=== PATIENT | female | born 1950 | race Caucasian/White ===

== ENCOUNTER 2024-03-09 08:05 | Outpatient (CLI) | payer MEDICARE, SELFPAY | END 2024-03-09 08:06 | disposition home or self-care (01) | LOC: WOUND 08:09 | PROVIDERS: PCP Nurse Practitioner Gerontology; Visit Provider Nurse Practitioner Family | DX: L89.154 Pressure ulcer of sacral region, stage 4 (principal); G35 Multiple sclerosis; Z99.3 Dependence on wheelchair | CPT/HCPCS: 11043; G0463 ==

== ENCOUNTER 2024-03-09 15:18 | Outpatient (CLI) | payer MEDICARE, SELFPAY ==
--- NOTE | 2024-03-09 15:30 | MR_ITS ---
Patient: TUAN CHURCH Facility:?[facility] Patient ID:?[id number] Site Patient ID:?[id number]. Site :?[id number] Study:?MRI-Pelvis (Bony) W/O OSTEO-03/09/2024 5:14:10 PM Ordering Physician:KACIE BURNS Final Report: INDICATION: Pressure injury of sacral region. TECHNIQUE: Noncontrast MRI of the pelvis with axial, sagittal and coronal T1 and STIR images acquired. 1.5 maribel MRI scanner. COMPARISON: No prior. FINDINGS: There is a sacral region decubitus ulcer to the left of the midline. Infiltration of the underlying soft tissues compatible with cellulitis. There is muscle edema involving a portion of the gluteus napoleon muscle adjacent to the ulcer compatible with myositis. No drainable soft tissue collection. There is an area of reactive bone marrow edema involving the left sacrum adjacent to the decubitus ulcer. There is no confluent effacement of the fatty marrow within the sacrum specific for osteomyelitis. No other areas of potential osteomyelitis. 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 On the right, minor hip joint effusion. On the left, no significant hip joint effusion. Patient is status post prior instrumentation of the left proximal femur. Prior fracture healed. No acute fracture. Suprapubic urinary bladder catheter in place. Bladder decompressed. No deep pelvic fluid collection. Common hamstring tendons are intact. Distal iliopsoas tendons intact. No high- grade gluteal tendon tear. IMPRESSION: 1. Sacral region decubitus ulcer to the left of the midline with associated cellulitis. 2. Muscle edema involving a portion of the gluteus nap[place]on muscle adjacent to the ulcer compatible with myositis. 3. No drainable soft tissue collection. 4. Reactive bone marrow edema involving the left sacrum adjacent to the decubitus ulcer. No confluent effacement of the fatty marrow within the sacrum specific for osteomyelitis. Dictated by Kwesi Theodore MD @ 03/10/2024 8:25:51 AM Signed by:?Kwesi Theodore MD @03/10/2024 8:26:17 AM (Electronic Signature)
== END 2024-03-09 15:19 | disposition home or self-care (01) ==
LOC: MRI 15:19
PROVIDERS: PCP Nurse Practitioner Gerontology; Visit Provider Nurse Practitioner Family
DX: L89.154 Pressure ulcer of sacral region, stage 4 (principal)
CPT/HCPCS: 11043; 72195; G0463

== ENCOUNTER 2024-03-14 10:49 | Outpatient (CLI) | payer MEDICARE, SELFPAY | END 2024-03-14 10:50 | disposition home or self-care (01) | LOC: WOUND 10:50 | PROVIDERS: PCP Nurse Practitioner Gerontology; Visit Provider Nurse Practitioner Family | DX: L89.154 Pressure ulcer of sacral region, stage 4 (principal); G35 Multiple sclerosis; R26.9 Unspecified abnormalities of gait and mobility; Z99.3 Dependence on wheelchair; B95.61 Methicillin susceptible Staphylococcus aureus infection as the cause of diseases classified elsewhere | CPT/HCPCS: 11043; 87070; 87186; 96372; J0696 ==

== ENCOUNTER 2024-03-23 08:28 | Outpatient (CLI) | payer MEDICARE, SELFPAY | END 2024-03-23 08:29 | disposition home or self-care (01) | LOC: WOUND 08:28 | PROVIDERS: PCP Nurse Practitioner Gerontology; Visit Provider Nurse Practitioner Family | DX: L89.154 Pressure ulcer of sacral region, stage 4 (principal) | CPT/HCPCS: 11043; 96372 ==

== ENCOUNTER 2024-03-27 14:03 | Outpatient (CLI) | payer MEDICARE, SELFPAY | END 2024-03-27 14:04 | disposition home or self-care (01) | LOC: WOUND 14:03 | PROVIDERS: PCP Nurse Practitioner Gerontology; Visit Provider Nurse Practitioner Family | DX: L89.154 Pressure ulcer of sacral region, stage 4 (principal); G35 Multiple sclerosis | CPT/HCPCS: 11043; 97605 ==

== ENCOUNTER 2024-04-03 13:59 | Outpatient (CLI) | payer MEDICARE, SELFPAY | END 2024-04-03 14:00 | disposition home or self-care (01) | LOC: WOUND 13:59 | PROVIDERS: PCP Nurse Practitioner Gerontology; Visit Provider Nurse Practitioner Family | DX: L89.154 Pressure ulcer of sacral region, stage 4 (principal); G35 Multiple sclerosis | CPT/HCPCS: 11043; 97605 ==

== ENCOUNTER 2024-04-10 14:01 | Outpatient (CLI) | payer MEDICARE, SELFPAY | END 2024-04-10 14:02 | disposition home or self-care (01) | LOC: WOUND 14:01 | PROVIDERS: PCP Nurse Practitioner Gerontology; Visit Provider Family Medicine | DX: L89.154 Pressure ulcer of sacral region, stage 4 (principal); G35 Multiple sclerosis | CPT/HCPCS: 11042; 97605 ==

== ENCOUNTER 2024-04-17 13:59 | Outpatient (CLI) | payer MEDICARE, SELFPAY | END 2024-04-17 14:00 | disposition home or self-care (01) | LOC: WOUND 13:59 | PROVIDERS: PCP Nurse Practitioner Gerontology; Visit Provider Nurse Practitioner Family | DX: L89.324 Pressure ulcer of left buttock, stage 4 (principal); G35 Multiple sclerosis | CPT/HCPCS: 11043; 97605 ==

== ENCOUNTER 2024-04-24 10:50 | Outpatient (CLI) | payer MEDICARE, SELFPAY | END 2024-04-24 10:51 | disposition home or self-care (01) | LOC: WOUND 10:50 | PROVIDERS: PCP Nurse Practitioner Gerontology; Visit Provider Nurse Practitioner Family | DX: L89.154 Pressure ulcer of sacral region, stage 4 (principal); G35 Multiple sclerosis; Z99.3 Dependence on wheelchair | CPT/HCPCS: 11043; 97605 ==

== ENCOUNTER 2024-05-01 14:02 | Outpatient (CLI) | payer MEDICARE, SELFPAY | END 2024-05-01 14:03 | disposition home or self-care (01) | LOC: WOUND 14:02 | PROVIDERS: PCP Nurse Practitioner Gerontology; Visit Provider Surgery | DX: L89.154 Pressure ulcer of sacral region, stage 4 (principal); G35 Multiple sclerosis; B95.61 Methicillin susceptible Staphylococcus aureus infection as the cause of diseases classified elsewhere; Z99.3 Dependence on wheelchair | CPT/HCPCS: 11042; 87070; 87186; 97605 ==

== ENCOUNTER 2024-05-08 14:03 | Outpatient (CLI) | payer MEDICARE, SELFPAY ==
[2024-05-08 14:27] LABS: Basophils Absolute Auto 0.03 K/uL (0.00-0.30); Basophils Percent Auto 0.5 % (0.0-3.0); Eosinophils Percent Auto 8.1 % (0.0-7.0); Hematocrit 37.3 % (33.0-51.0); Hemoglobin* 11.4 gm/dL (12.0-16.0); Immature Granulocytes Abs Auto 0.01 K/uL (0.00-0.30); Immature Granulocytes Pct Auto 0.2 %; Lymphocytes Absolute Auto 1.48 K/uL (0.90-2.90); Mean Corpuscular HGB Conc 31 gm/dL (32-36); Mean Corpuscular Hemoglobin 26 pg (26-34); Mean Corpuscular Volume 86 fL (80-100); Monocytes Percent Auto 8.1 % (0.0-11.0); Neutrophils Absolute Auto 3.45 K/uL (1.7-7.0); Neutrophils Percent Auto 58.1 % (42.0-72.0); Platelet Count* 344 K/uL (140-440); RDW Coefficient of Variation % 15.4 % (11.5-15.5); Red Blood Count 4.34 m/uL (4.00-5.20); White Blood Count* 5.93 K/uL (4.50-11.00)
[2024-05-08 14:45] LABS: Slide Review Reflex No
[2024-05-08 15:20] LABS: Erythrocyte SedimentationRate* 38 mm/hr (2-20)
[2024-05-08 15:50] LABS: C Reactive Protein* 0.7 mg/dL (0.5-1.0)
== END 2024-05-08 14:04 | disposition home or self-care (01) ==
LOC: WOUND 14:03
PROVIDERS: PCP Nurse Practitioner Gerontology; Visit Provider Physician Assistant Surgical
DX: L89.154 Pressure ulcer of sacral region, stage 4 (principal); G35 Multiple sclerosis; R41.0 Disorientation, unspecified; Z99.3 Dependence on wheelchair
CPT/HCPCS: 11043; 36415; 85025; 85651; 86140; 97605

== ENCOUNTER 2024-05-15 13:55 | Outpatient (CLI) | payer MEDICARE, SELFPAY | END 2024-05-15 13:56 | disposition home or self-care (01) | LOC: WOUND 13:55 | PROVIDERS: PCP Nurse Practitioner Gerontology; Visit Provider Nurse Practitioner Family | DX: L89.154 Pressure ulcer of sacral region, stage 4 (principal); G35 Multiple sclerosis | CPT/HCPCS: 11043 ==

== ENCOUNTER 2024-05-22 14:02 | Outpatient (CLI) | payer MEDICARE, SELFPAY | END 2024-05-22 14:03 | disposition home or self-care (01) | LOC: WOUND 14:03 | PROVIDERS: PCP Nurse Practitioner Gerontology; Visit Provider Family Medicine | DX: L89.154 Pressure ulcer of sacral region, stage 4 (principal); G35 Multiple sclerosis | CPT/HCPCS: 11042; 97605 ==

== ENCOUNTER 2024-05-26 13:30 | Outpatient (RCR) | payer MEDICARE, SELFPAY ==
--- NOTE | 2024-05-10 13:52 | ONC.NURNOTE ---
Called wound care to see if patient was coming in for IV antibiotics today. They stated that patient has a few other appointments and they didn't think they would be able to make it today. Patient is scheduled starting tomorrow 05/11 at 1330. Wound care is aware.
[2024-05-11 13:47] VITALS: BP 106/69; PULSE 77; RESP 16; TEMP 36.3; O2SAT 98
[2024-05-11] MEDS: cefTRIAXone 2 GM in 0.9 % SODIUM CHLORIDE Mini-bag 100 ML IVPB (14:01)
[2024-05-11] MEDS: SODIUM CHLORIDE 0.9 % (FLUSH) 10 ML SYRINGE IVF (14:05)
[2024-05-11] MEDS: 0.9 % SODIUM CHLORIDE 250 ml IV (14:05)
[2024-05-12] MEDS: cefTRIAXone 2 GM in 0.9 % SODIUM CHLORIDE Mini-bag 100 ML IVPB (14:03)
[2024-05-12] MEDS: 0.9 % SODIUM CHLORIDE 250 ml IV (14:08)
[2024-05-12] MEDS: SODIUM CHLORIDE 0.9 % (FLUSH) 10 ML SYRINGE IVF (14:09)
[2024-05-13 13:55] VITALS: BP 121/54; PULSE 74; RESP 14; TEMP 36.7; O2SAT 100
[2024-05-13] MEDS: cefTRIAXone 2 GM in 0.9 % SODIUM CHLORIDE Mini-bag 100 ML IVPB (14:04)
[2024-05-13 14:40] VITALS: BP 134/57; PULSE 77; RESP 16; TEMP 36.7; O2SAT 99
--- NOTE | 2024-05-13 14:59 | PC.NURSE ---
Antibiotic infusion finished, vitals stable, afebrile.
[2024-05-14] MEDS: cefTRIAXone 2 GM in 0.9 % SODIUM CHLORIDE Mini-bag 100 ML IVPB (13:43)
[2024-05-14 13:45] VITALS: BP 136/63; PULSE 78; RESP 18; TEMP 36.8; O2SAT 99
[2024-05-14 14:32] VITALS: BP 109/58; PULSE 78; RESP 18; TEMP 36.8; O2SAT 99
--- NOTE | 2024-05-14 14:38 | PC.NURSE ---
Infusion: Patient pleasant and cooperative. VSS, afebrile. Infusion finished at 1425. No reactions noted.
[2024-05-15 12:42] VITALS: BP 123/73; PULSE 102; RESP 15; TEMP 36.8; O2SAT 82
[2024-05-15] MEDS: SODIUM CHLORIDE 0.9 % (FLUSH) 10 ML SYRINGE IVF (12:58)
[2024-05-15] MEDS: 0.9 % SODIUM CHLORIDE 250 ml IV ×2 (12:59→13:36)
[2024-05-15] MEDS: cefTRIAXone 2 GM in 0.9 % SODIUM CHLORIDE Mini-bag 100 ML IVPB (13:01)
[2024-05-15 13:40] VITALS: O2SAT 97
[2024-05-16 13:38] VITALS: BP 123/65; PULSE 76; RESP 14; TEMP 36.6; O2SAT 97
[2024-05-16] MEDS: 0.9 % SODIUM CHLORIDE 250 ml IV (13:44)
[2024-05-16] MEDS: SODIUM CHLORIDE 0.9 % (FLUSH) 10 ML SYRINGE IVF (13:44)
[2024-05-16] MEDS: cefTRIAXone 2 GM in 0.9 % SODIUM CHLORIDE Mini-bag 100 ML IVPB (13:44)
[2024-05-17 13:41] VITALS: BP 116/71; PULSE 76; RESP 16; TEMP 36.4; O2SAT 100
[2024-05-17] MEDS: cefTRIAXone 2 GM in 0.9 % SODIUM CHLORIDE Mini-bag 100 ML IVPB (13:57)
[2024-05-17] MEDS: 0.9 % SODIUM CHLORIDE 250 ml IV (13:58)
[2024-05-17] MEDS: SODIUM CHLORIDE 0.9 % (FLUSH) 10 ML SYRINGE IVF (13:58)
[2024-05-18 13:39] VITALS: BP 119/71; PULSE 74; RESP 16; TEMP 36.6; O2SAT 100
[2024-05-18] MEDS: cefTRIAXone 2 GM in 0.9 % SODIUM CHLORIDE Mini-bag 100 ML IVPB (14:03)
[2024-05-18] MEDS: SODIUM CHLORIDE 0.9 % (FLUSH) 10 ML SYRINGE IVF (14:03)
[2024-05-19] MEDS: 0.9 % SODIUM CHLORIDE 250 ml IV (14:04)
[2024-05-19] MEDS: SODIUM CHLORIDE 0.9 % (FLUSH) 10 ML SYRINGE IVF (14:04)
[2024-05-19] MEDS: cefTRIAXone 2 GM in 0.9 % SODIUM CHLORIDE Mini-bag 100 ML IVPB (14:04)
[2024-05-20] MEDS: cefTRIAXone 2 GM in 0.9 % SODIUM CHLORIDE Mini-bag 100 ML IVPB (13:38)
[2024-05-20 13:46] VITALS: BP 129/68; PULSE 81; RESP 16; TEMP 36.8; O2SAT 99
[2024-05-21] MEDS: cefTRIAXone 2 GM in 0.9 % SODIUM CHLORIDE Mini-bag 100 ML IVPB (14:15)
[2024-05-21 14:21] VITALS: BP 138/66; PULSE 81; RESP 16; TEMP 37.1; O2SAT 100
[2024-05-22] MEDS: cefTRIAXone 2 GM in 0.9 % SODIUM CHLORIDE Mini-bag 100 ML IVPB (15:23)
[2024-05-22] MEDS: SODIUM CHLORIDE 0.9 % (FLUSH) 10 ML SYRINGE IVF (15:24)
[2024-05-22 15:25] VITALS: BP 107/69; PULSE 74; RESP 16; TEMP 36.5; O2SAT 97
[2024-05-23 13:39] VITALS: BP 143/81; PULSE 94; RESP 16; TEMP 36.6; O2SAT 98
[2024-05-23] MEDS: SODIUM CHLORIDE 0.9 % (FLUSH) 10 ML SYRINGE IVF (13:45)
[2024-05-23] MEDS: 0.9 % SODIUM CHLORIDE 250 ml IV (13:46)
[2024-05-23] MEDS: cefTRIAXone 2 GM in 0.9 % SODIUM CHLORIDE Mini-bag 100 ML IVPB (13:57)
[2024-05-24 13:41] VITALS: BP 113/70; PULSE 96; TEMP 36.7; O2SAT 99
[2024-05-24] MEDS: cefTRIAXone 2 GM in 0.9 % SODIUM CHLORIDE Mini-bag 100 ML IVPB (13:52)
[2024-05-24] MEDS: SODIUM CHLORIDE 0.9 % (FLUSH) 10 ML SYRINGE IVF (13:54)
[2024-05-25 11:14] VITALS: BP 125/70; PULSE 89; RESP 16; TEMP 36.3; O2SAT 99
[2024-05-25] MEDS: SODIUM CHLORIDE 0.9 % (FLUSH) 10 ML SYRINGE IVF (11:49)
[2024-05-25] MEDS: 0.9 % SODIUM CHLORIDE 250 ml IV (11:50)
[2024-05-25] MEDS: cefTRIAXone 2 GM in 0.9 % SODIUM CHLORIDE Mini-bag 100 ML IVPB (11:51)
[2024-05-26] MEDS: cefTRIAXone 2 GM in 0.9 % SODIUM CHLORIDE Mini-bag 100 ML IVPB (13:53)
[2024-05-26] MEDS: 0.9 % SODIUM CHLORIDE 250 ml IV (13:53)
[2024-05-26] MEDS: SODIUM CHLORIDE 0.9 % (FLUSH) 10 ML SYRINGE IVF (13:54)
[2024-05-27 13:30] VITALS: BP 144/77; PULSE 90; RESP 18; TEMP 36.6; O2SAT 99
[2024-05-27] MEDS: cefTRIAXone 2 GM in 0.9 % SODIUM CHLORIDE Mini-bag 100 ML IVPB (13:31)
[2024-05-27] MEDS: SODIUM CHLORIDE 0.9 % (FLUSH) 10 ML SYRINGE IVF (13:31)
[2024-05-27] MEDS: 0.9 % SODIUM CHLORIDE 250 ml IV (13:31)
[2024-05-27 14:12] VITALS: BP 144/68; PULSE 90; RESP 18; TEMP 36.8; O2SAT 99
--- NOTE | 2024-05-27 14:19 | PC.NURSE ---
Infusion: Patient pleasant and cooperative. VSS before and after transfusion, no reaction noted. IV removed with tip intact.
== END 2024-11-07 23:59 | disposition home or self-care (01) ==
LOC: CCIC 13:30
PROVIDERS: PCP Nurse Practitioner Gerontology; Visit Provider Clinical Nurse Specialist
DX: L89.154 Pressure ulcer of sacral region, stage 4 (principal)
CPT/HCPCS: 11042; 11043; 96365; 97605; G0463; J0696; J7050

== ENCOUNTER 2024-05-29 14:00 | Outpatient (CLI) | payer MEDICARE, SELFPAY | END 2024-05-29 14:01 | disposition home or self-care (01) | LOC: WOUND 05-30 12:42 | PROVIDERS: PCP Nurse Practitioner Gerontology; Visit Provider Nurse Practitioner Family | DX: L89.154 Pressure ulcer of sacral region, stage 4 (principal); G35 Multiple sclerosis; Z99.3 Dependence on wheelchair | CPT/HCPCS: 11042; 97605 ==

== ENCOUNTER 2024-06-05 14:00 | Outpatient (CLI) | payer MEDICARE, SELFPAY | END 2024-06-05 14:01 | disposition home or self-care (01) | LOC: WOUND 14:00 | PROVIDERS: PCP Nurse Practitioner Gerontology; Visit Provider Nurse Practitioner Family | DX: L89.154 Pressure ulcer of sacral region, stage 4 (principal); G35 Multiple sclerosis | CPT/HCPCS: 11042; 97605 ==

== ENCOUNTER 2024-06-12 14:01 | Outpatient (CLI) | payer MEDICARE, SELFPAY | END 2024-06-12 14:02 | disposition home or self-care (01) | LOC: WOUND 14:02 | PROVIDERS: PCP Nurse Practitioner Gerontology; Visit Provider Nurse Practitioner Family | DX: L89.154 Pressure ulcer of sacral region, stage 4 (principal); G35 Multiple sclerosis; Z99.3 Dependence on wheelchair | CPT/HCPCS: 11044; 88305; 88312; 97605 ==

== ENCOUNTER 2024-06-19 14:04 | Outpatient (CLI) | payer MEDICARE, SELFPAY | END 2024-06-19 14:05 | disposition home or self-care (01) | LOC: WOUND 14:04 | PROVIDERS: PCP Nurse Practitioner Gerontology; Visit Provider Physician Assistant Surgical | DX: L89.154 Pressure ulcer of sacral region, stage 4 (principal); G35 Multiple sclerosis; Z99.3 Dependence on wheelchair | CPT/HCPCS: 15271; 97605; Q4151 ==

== ENCOUNTER 2024-07-03 13:59 | Outpatient (CLI) | payer MEDICARE, SELFPAY | END 2024-07-03 14:00 | disposition home or self-care (01) | LOC: WOUND 14:00 | PROVIDERS: PCP Nurse Practitioner Gerontology; Visit Provider Nurse Practitioner Family | DX: L89.154 Pressure ulcer of sacral region, stage 4 (principal); G35 Multiple sclerosis | CPT/HCPCS: 11042; 97605 ==

== ENCOUNTER 2024-07-10 14:04 | Outpatient (CLI) | payer MEDICARE, SELFPAY | END 2024-07-10 14:05 | disposition home or self-care (01) | LOC: WOUND 14:04 | PROVIDERS: PCP Nurse Practitioner Gerontology; Visit Provider Nurse Practitioner Family | DX: L89.154 Pressure ulcer of sacral region, stage 4 (principal); G35 Multiple sclerosis | CPT/HCPCS: 11042; 97605 ==

== ENCOUNTER 2024-07-17 13:50 | Outpatient (CLI) | payer MEDICARE, SELFPAY | END 2024-07-17 13:51 | disposition home or self-care (01) | LOC: WOUND 13:51 | PROVIDERS: PCP Nurse Practitioner Gerontology; Visit Provider Nurse Practitioner Family | DX: L89.154 Pressure ulcer of sacral region, stage 4 (principal); L89.520 Pressure ulcer of left ankle, unstageable; G35 Multiple sclerosis; Z99.3 Dependence on wheelchair | CPT/HCPCS: 11042; 97602 ==

== ENCOUNTER 2024-07-24 13:55 | Outpatient (CLI) | payer MEDICARE, SELFPAY | END 2024-07-24 13:56 | disposition home or self-care (01) | LOC: WOUND 13:55 | PROVIDERS: PCP Nurse Practitioner Gerontology; Visit Provider Nurse Practitioner Family | DX: L89.154 Pressure ulcer of sacral region, stage 4 (principal); L89.520 Pressure ulcer of left ankle, unstageable; G35 Multiple sclerosis | CPT/HCPCS: 11042; 97602 ==

== ENCOUNTER 2024-07-31 13:55 | Outpatient (CLI) | payer MEDICARE, SELFPAY | END 2024-07-31 13:56 | disposition home or self-care (01) | LOC: WOUND 13:55 | PROVIDERS: PCP Nurse Practitioner Gerontology; Visit Provider Nurse Practitioner Family | DX: L89.154 Pressure ulcer of sacral region, stage 4 (principal); L89.520 Pressure ulcer of left ankle, unstageable; G35 Multiple sclerosis | CPT/HCPCS: 97597 ==

== ENCOUNTER 2024-08-07 13:52 | Outpatient (CLI) | payer MEDICARE, SELFPAY | END 2024-08-07 13:53 | disposition home or self-care (01) | LOC: WOUND 13:52 | PROVIDERS: PCP Nurse Practitioner Gerontology; Visit Provider Nurse Practitioner Family | DX: L89.154 Pressure ulcer of sacral region, stage 4 (principal); L89.520 Pressure ulcer of left ankle, unstageable; G35 Multiple sclerosis; Z99.3 Dependence on wheelchair | CPT/HCPCS: 11042; 97605 ==

== ENCOUNTER 2025-03-15 08:09 | Outpatient (CLI) | payer MEDICARE, SELFPAY ==
[2025-03-15 10:24] LABS: Basophils Absolute Auto 0.02 K/uL (0.00-0.30); Basophils Percent Auto 0.3 % (0.0-3.0); Eosinophils Absolute Auto 0.13 K/uL (0.00-0.50); Eosinophils Percent Auto 1.9 % (0.0-7.0); Hematocrit* 37.6 % (33.0-51.0); Hemoglobin* 11.6 gm/dL (12.0-16.0); Lymphocytes Percent Auto 18.9 % (20-44); Mean Corpuscular HGB Conc 31 gm/dL (32-36); Mean Corpuscular Hemoglobin 27 pg (26-34); Mean Corpuscular Volume 86 fL (80-100); Monocytes Percent Auto 7.8 % (0.0-11.0); Neutrophils Absolute Auto 4.85 K/uL (1.7-7.0); Neutrophils Percent Auto 71.1 % (42.0-72.0); Platelet Count* 290 K/uL (140-440); RDW Coefficient of Variation % 15.4 % (11.5-15.5); Red Blood Count* 4.37 m/uL (4.00-5.20); White Blood Count* 6.82 K/uL (4.50-11.00)
[2025-03-15 10:29] LABS: Slide Review Reflex No
[2025-03-15 10:38] LABS: Chloride* 101 mmol/L (96-114)
[2025-03-15 10:39] LABS: Albumin* 3.9 g/dL (3.3-5.0); Potassium* 3.5 mmol/L (3.6-5.1); Sodium* 141 mmol/L (135-149)
[2025-03-15 10:41] LABS: Blood Urea Nitrogen* 32 mg/dL (7-30); Creatinine* 0.4 mg/dL (0.5-1.5); Estimated Glomerular Filt Rate 103 ml/min
[2025-03-15 10:42] LABS: Anion Gap 7 mEq/L (7-15); Calcium* 9.5 mg/dL (8.4-10.6); Carbon Dioxide* 33 mmol/L (20-32); Glucose* 89 mg/dL (60-115); Total Protein* 7.5 g/dL (6.0-8.3)
[2025-03-15 10:56] LABS: C Reactive Protein* < 0.5 mg/dL (0.5-1.0)
[2025-03-15 12:37] LABS: Erythrocyte SedimentationRate* 34 mm/hr (2-20)
[2025-03-16 14:14] LABS: Prealbumin 14.5 mg/dL (20.0-40.0)
== END 2025-03-15 08:10 | disposition home or self-care (01) ==
PROVIDERS: PCP Nurse Practitioner Gerontology; Visit Provider Physician Assistant Surgical
DX: L89.154 Pressure ulcer of sacral region, stage 4 (principal); L89.523 Pressure ulcer of left ankle, stage 3; G35 Multiple sclerosis; R26.9 Unspecified abnormalities of gait and mobility; Z99.3 Dependence on wheelchair
CPT/HCPCS: 11042; 11043; 36415; 80048; 82040; 84134; 84155; 85025; 85651; 86140; 97605; G0463

== ENCOUNTER 2025-03-22 11:02 | Outpatient (CLI) | payer MEDICARE, SELFPAY | END 2025-03-22 11:03 | disposition home or self-care (01) | LOC: WOUND 11:02 | PROVIDERS: PCP Nurse Practitioner Gerontology; Visit Provider Nurse Practitioner Family | DX: L89.523 Pressure ulcer of left ankle, stage 3 (principal); L89.154 Pressure ulcer of sacral region, stage 4; G35 Multiple sclerosis; R26.9 Unspecified abnormalities of gait and mobility; Z99.3 Dependence on wheelchair | CPT/HCPCS: 11042; 97597; 97605 ==

== ENCOUNTER 2025-03-23 10:10 | Outpatient (CLI) | payer MEDICARE, SELFPAY ==
--- NOTE | 2025-03-23 10:15 | CRLHL7_ITS ---
For Patients: As a result of the Century Cures Act, medical imaging exams and procedure reports are released immediately into your electronic medical record. You may view this report before your referring provider. If you have questions, please contact your health care provider. EXAM: MRI OF THE PELVIS, WITHOUT CONTRAST CLINICAL INDICATION: Decubitus ulceration. COMPARISON PLAIN FILMS: None. COMPARISON CROSS-SECTIONAL IMAGING STUDIES: 03/09/2024 MRI. TECHNICAL: Axial, sagittal and coronal T1, PD FS and STIR images of the pelvis precontrast. Postcontrast T1 weighted imaging with fat saturation. Contrast: Dotarem, 20 mL IV. FINDINGS: OSSEOUS STRUCTURES AND SOFT TISSUES: Broad ulceration in the left gluteal region has progressed in size in the interval. The ulceration measures up to 3.8 cm in width. Soft tissue thickening and enhancement adjacent to the ulceration extends through the gluteus napoleon musculature to the dorsal margin of the lower left sacral ala. No subcutaneous abscess. There is new osseous volume loss and sclerosis in the dorsal margin of the sacral ala consistent with osteomyelitis. Moderate amount of intramedullary edema in the left lower sacral ala. Stable mild subcutaneous edema in the left hip and thigh. HIP JOINTS: Right: Chronic osseous volume loss and remodeling. No synovitis. Left: Internal fixation across an old healed proximal femoral fracture. No joint effusion or synovitis. MUSCLES AND TENDONS: Diffuse muscular atrophy. Paraspinal muscular edema. No retracted tendon tear. OTHER JOINTS: Degenerative changes in the SI joints. No ankylosis. Pubic symphysis is maintained. INTRAPELVIC CONTENTS: Suprapubic catheter. No free fluid. IMPRESSION: 1. Progressive ulceration in the left gluteal region with new volume loss in the left sacral ala consistent with osteomyelitis. No subcutaneous abscess. 2. Mild subcutaneous edema in the left hip and thigh. 3. Internal fixation across an old healed left proximal femoral fracture. 4. Chronic osseous volume loss and remodeling in the right hip. 5. Degenerative changes in the SI joints. 6. Diffuse muscular atrophy and paraspinal muscular edema. 7. Suprapubic catheter. Dictated by Jeevan Orellana MD @ 03/26/2025 12:20:21 PM (Electronically Signed)
== END 2025-03-23 10:11 | disposition home or self-care (01) ==
LOC: MRI 10:11
PROVIDERS: PCP Nurse Practitioner Gerontology; Visit Provider Physician Assistant Surgical
DX: L89.154 Pressure ulcer of sacral region, stage 4 (principal); R60.9 Edema, unspecified
CPT/HCPCS: 72197; A9575

== ENCOUNTER 2025-03-30 15:02 | Outpatient (CLI) | payer MEDICARE, SELFPAY | END 2025-03-30 15:03 | disposition home or self-care (01) | LOC: WOUND 15:02 | PROVIDERS: PCP Nurse Practitioner Gerontology; Visit Provider Nurse Practitioner Family | DX: L89.154 Pressure ulcer of sacral region, stage 4 (principal); M86.38 Chronic multifocal osteomyelitis, other site; L89.523 Pressure ulcer of left ankle, stage 3; G35 Multiple sclerosis; Z99.3 Dependence on wheelchair | CPT/HCPCS: 11042; 97605 ==

== ENCOUNTER 2025-04-06 15:01 | Outpatient (CLI) | payer MEDICARE, SELFPAY | END 2025-04-06 15:02 | disposition home or self-care (01) | LOC: WOUND 15:02 | PROVIDERS: PCP Nurse Practitioner Gerontology; Visit Provider Nurse Practitioner Family | DX: L89.154 Pressure ulcer of sacral region, stage 4 (principal); M86.38 Chronic multifocal osteomyelitis, other site; G35 Multiple sclerosis; Z99.3 Dependence on wheelchair | CPT/HCPCS: 11043; 97605 ==

== ENCOUNTER 2025-04-10 10:47 | Outpatient (CLI) | payer MEDICARE, SELFPAY | END 2025-04-10 10:48 | disposition home or self-care (01) | LOC: WOUND 10:48 | PROVIDERS: PCP Nurse Practitioner Gerontology; Visit Provider Nurse Practitioner Family | DX: L89.154 Pressure ulcer of sacral region, stage 4 (principal); M86.38 Chronic multifocal osteomyelitis, other site; G35 Multiple sclerosis; Z99.3 Dependence on wheelchair | CPT/HCPCS: 97597; 97605 ==

== ENCOUNTER 2025-04-20 15:12 | Outpatient (CLI) | payer MEDICARE, SELFPAY | END 2025-04-20 15:13 | disposition home or self-care (01) | LOC: WOUND 15:13 | PROVIDERS: PCP Nurse Practitioner Gerontology; Visit Provider Nurse Practitioner Family | DX: L89.154 Pressure ulcer of sacral region, stage 4 (principal); M86.38 Chronic multifocal osteomyelitis, other site; G35 Multiple sclerosis; Z99.3 Dependence on wheelchair | CPT/HCPCS: 11042; 97605 ==

== ENCOUNTER 2025-04-24 10:49 | Outpatient (CLI) | payer MEDICARE, SELFPAY ==
--- OUTSIDE RECORDS SUMMARY | 2025-03-12 13:30 | XMS_ITS | Encounter Summary ---
Author Organization [facility] Address [address] [place] [address] Care Team Providers Care Tank Pumper Name Role Phone Mary Kate Chaudhary MD Unavailable [phone] Margarette Oropeza NP Primary Care Pro vider Reason for Referral * PT/OT/ST (Routine) - Authorized Specialty Diagnoses / Procedures Referred By Shaun garza Referred To Contact Occupational Therapy Diagnoses Multiple sclerosis (HCC) Mary Kate Chaudhary MD [address] [place] [address] Phone: tel: fax: Referral ID Status Reason Start Date Expiration Date Visits Requested Visits Authorized [id number] Authorized Specialty Services Required 03/27/2025 1 1 Comments Patient with RRMS and wheelchair bound with pressure ulcer. Eval and treat * Consultation (Routine) - Authorized Specialty Diagnoses / Procedures Referred By Shaun garza Referred To Contact Physical Therapy Diagnoses Multiple sclerosis (HCC) Mary Kate Chaudhary MD [address] [place] [address] Phone: tel: fax: Referral ID Status Reason Start Date Expiration Date Visits Requested Visits Authorized [id number] Authorized Specialty Services Required 03/12/2025 1 1 Question Answer Service to provide Physical Therapy Referral reason Evaluate and Treat Comments [facility] Patient with MS with difficulty with transfers. Well known to provider. Patient now back in ID * Other (Routine) - Open Specialty Diagnoses / Procedures Referred By Shaun garza Referred To Contact Diagnoses Multiple sclerosis (HCC) Procedures [facility] APPOINTMENT Mary Kate Chaudhary MD [address] [place] [address] Phone: tel: fax: Referral ID Status Reason Start Date Expiration Date Visits Re quested Visits Authorized [id number] Open 03/12/2026 1 1 Reason for Visit * Reason Comments Follow up * Other (Routine) - Pending Review Specialty Diagnoses / Procedures Referred By Shaun garza Referred To Contact Diagnoses Multiple sclerosis (HCC) Procedures [facility]POINT[facility] Mary Kate Chaudhary MD [address] [place] [address] Phone: tel: fax: Referral ID Status Reason Start Date Expiration Date V isits Requested Visits Authorized [id number] Pending Review 03/06/2025 1 1 Encounter Details Date Type Department Care Team (Late st Contact Info) Description 03/12/2025 1:30 PM CDT Office Visit [facility] [address] [phone] Mary Kate Chaudhary MD [address] [place] [address] [id number] Vitamin D deficiency (Primary Dx); Multiple sclerosis (HCC); Vitamin B12 deficiency Social History Tobacco Use Types Packs/Day Years Used Date Smoking Tobacco: Never Smokeless Tobacco: Never Alcohol Use Standard Drinks/Week Comments Not Currently 0 (1 standard drink = 0.6 oz pur e alcohol) Comments Unknown Sex and Gender Information Value Date Recorded Sex Assigned at Not on file Legal Sex Female 7:07 PM CDT Gender Identity Not on file Sexual Orientation Not on file documented as of this encounter Last Filed Vital Signs Vital Sign Reading Time Taken Comments Blood Pressure 121/78 03/12/2025 1:40 PM CDT Pulse 81 03/12/2025 1:40 PM CDT Temperature - - Respiratory Rate - - Oxygen Saturation - - Inhaled Oxygen Concentration - - Weight - - Height - - Body Mass Index - - documented in this encounter Patient Instructions * Patient Instructions* Mary Kate Chaudhary MD - 03/12/2025 1:30 PM CDT Follow up: 1 y Labs Next Due: Labs are due anytime New Medications/changes: None - - [email or web address] Referrals: [facility] Other Recommendations: Regular exercise and healthy diet are important and recommended for MS patients. Please keep up on your routine preventative care with your primary care physician including cancer screenings and vaccinations. While vaccination is recommended it is not required. MS patients shouldnot received live vaccines. Cigarette smoking is known to worsen disease course/outcomes of MS and can increase your risk of relapse. If you do smoke, please consider quitting/reducing use. documented in this encounter Progress Notes * Mary Kate Chaudhary MD - 03/12/2025 1:30 PM CDT In the interval since her last visit, Followed with [facility] 07/18/24 for depression/anxiety, refilled wellbutrin. PICC line placed 08/31/24 per infection protocol. Presented to ED 09/26/24 for eval of weakness and constipation. 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 Consulted with ID during admit, given Invanz and vanco. Followed by PT/OT during admit. Pt remained stable and discharged 09/28/24 with home care. Followed with [facility] 01/03/25 for wound consult, advised no infection and continue to follow outpt, no need for surgical management. Followed with General Surgery 01/17/25 for wound consult, advised surgery and discussed diverting ostomy to preserve wound, deferred ostomy and scheduled debridement. Surgery completed 01/26/25 through . Followed with Plastic Surgery 02/02/25 for post op check, advised to continue with wound vac and flap procedure discussed, deferred to see if further healing withwound vac. Followed back with General Surgery 02/13/25 for post op check, advised healing well and continue to follow with ID for abx. Today, reports concern for hx of recurrent pressure ulcers infection. Has seen several specialists and considering if needs flap procedure. sheet with concerns. Has maximiliano moise following locally in [place] and now will be following at [place]. Chronic Symptoms (deferred 02/2025) Memory - mild memory problems but reports do not affect with functioning. Stable. Mood - She reports mild mood symptoms. Was able to stop Risperidone. Stable. Vision - uses CPAP for ARI since 2012. Has had trial of medications. Weakness/Mobility - Bilateral leg weakness - left worse than the right. Uses AFO on left ankle. As of 05/2021 needing help with most transfers with Eli or sit to stand post hospitalization. Left arm weakness - progressive weaknessof left hand. Now on Ampyra Pain/Abnormal Sensations - Foot pain - increased in 2016 - but improved since late 2016. Feels Biotin helped with this. Failed GPn in the past. Fatigue/Energy - can fatigue. Bladder - she uses a straight catheter for several years. She has been getting Botox for her bladder. Had suprapubic placed in 03/2021 Sherita Gee in [facility] and Dr. Jaramillo - Other - Osteoperosis - had been on treatment in past. PCP is following Infrarenal aneurysm - PCP following getting regular monitoring [facility] EVENTS IN DISEASE HISTORY 1. : had optic neuritis x2. Each event occurring approximately 6 months after delivery. Was treated with steroids. Had mild residual vision deficits. 2. 1990: Had episode of imbalance and weakness. No further work up was pursued. 3. 1995: Had recurrent optic neuritis of left eye. When moved back to [place] from [place] underwent further work up for MS and was diagnosed in 1996 with positive CSF as below. 4. Started treatment with Avonex [id number]. She had initial injection site reactions and flu like side effects. 5. She reports gradual progression of gait difficulty with 2000 needing cane, 2002 needing walker, and 2007 needing wheelchair for longer distances. She reports in 2010 she could walk about 40-50 feet. 6. She changed to Rebif 22 two times per week in 2007 and has continued this drug at this dosing due to insurance issues. MRI's have been stable as below other than 2011 imaging of the C spine showing new lesions. 7. It is difficult for her to identify her last clinical relapse but she describes that she was admitted several times in early for treatment with steroids. She had increased weakness and prolonged recovery after her hip fracture in 2005. In February 2014 she had acute onset of weakness and shortness of breath. She was treated with steroids but no specific diagnosis was given. She has not fully returned to her prior baseline after this event. 8. Spring 2014 - started 4-Ap and reports improvement in strength. 8. Changed to full Rebif 44 - 03/2015 9. Started Biotin 300mg daily 10/2015 10. Spring 2015 with increased left sided weakness, increased nerve pain in feet.-. Changed to Biotin 100mg TID 03/2016 11. 10/2017 - admitted to hospital in [place] with UTI and and pneumonia with concern for aspiration PNA but subsequent swallow studies reassuring. Had prolonged recovery but by 02/2018 could go 10 feet (prior to admit closer to 25 feet) 12. 02/2018 - stopped Rebif - given concern for more progressive disease process 13. 09/2018 - repeat MRIs with one new enhancing brain lesion in left cerebellar area - concern forpossible stroke vs new MS lesion. MRA imaging done and has L > R carotid artery stenosis but no significant stenosis of posterior circulation started on ASA and statin. 14. 11/2018 started to have decrease in strength with recurrent UTIs and diarrhea. She did see neurology locally in [place] and stopped Aubagio but initially no change in loose stools. Had multiple recurrent UTIs during this period in winter/spring. MRI done locally in 12/2018 with concern for potential new lesion but difficult to compare. On 03/01/19 I treated her with Medrol dose pack and she restarted PT at [facility]. Feels has had continued improvement. 15 -spring 2020 with recurrent UTIs with admit in 03/2021 for UTI needing prolonged rehab stay due to increased weakness. - suprapubic cath placed. more difficulty with transfers needing both Sit to Stand and Eli lift for transfers at times. Prior was able to pivot transfer. 16 - 11/2022 - event of acute torso weakness. Symptoms persisted with overall weaker in torso (was not able to resume horseback riding PT sessions) but also more acute events of worsening 2-3x a week that resolve with rest/reclined position. MRis stable 02/2023. Did have UTI in 10/2022. Started Ampyrasummer 2022. LABS 01/02/25 - [facility] - Comp w/ BUN 22 (H), Creatinine 0.35 (L), BUN/Creat 62.9 (H), Protein 6.3 (L), Alk Phos 165 (H). CRP wnl. CBC w/ Hgb 11.3 (L), Hct 34.4 (L), RDW 16.1 (H). ESR 31 (H). 12/26/24 - [facility] - CBC w/ RDW 16.2 (H). 12/14/24 - [facility] - Comp w/ Creatinine 0.43 (L), K 3.3 (L), Alk Phos 133 (H), Albumin 3.1 (L), AST 14 (L), BUN/Creat 34.9 (H), Globulin 4.2 (L), Albumin/Globulin 0.7 (L). CBC w/ diff w/ Hgb 11 (L), Hct 35(L), Neutrophil% 67 (H), Lymph% 20.3 (L), Monocyte% 11.1 (H), RDW 15.6 (H). 10/09/24 - [facility] - Comp w/ Creatinine 0.36 (L), BUN/Creat 52.8 (H), Glucose 119 (H), Alk Phos 136 (H).CK wnl. CBC w/ diff w/ RDW 15.5 (H), %Monocytes 10.8 (H). 05/09/24 - [facility] - Vit D 66.7. Vit B12 1523 (H). TSH 2.71. CBC w/ Hgb 11.9 (L), MCHC 31.2 (L), RDW 16 (H). Comp w/ Sodium 146 (H), Glucose 104 (H), BUN 33 (H), Creatinine 0.39 (L), BUN/Creat 85 (H), Albumin 3.8 (L), Alk Phos 128 (H). 07/14/23 - [facility] - Vit D 68.7. LFT w/ Alk Phos 112 (H). BMP w/ Glucose 101 (H), BUN/Creat 35 (H). CBC wnl. 12/22/22 - [place] - Comp w/ BUN 26 (L), Creatinine 0.50 (L), BUN/Creat 52 (H). Vit D 60. Iron wnl. TSH 2.98. CBC w/ diff wnl. Vit B12 706. 11/16/22 - [facility] - UA w/ Blood 2+, Leukocyte Esterase 500, Bacteria 1+. 05/25/22 - with PCP Lipids wnl. TSH 2.21. Comp wnl. Iron wnl. CBC w/ diff , 03/09/22 - CBC w/ diff wnl. Vit D 77.6. Ferritin 324 (H). Iron/TIBC wnl. 12/30/2021 - [facility] - CBC with diff with Wbc 4.6, RBC low 3.76, Hg 10.5, low, Hct low 31.9, (alc 1288), 12/15/2021 - Comp with BUN 30, creatinine 0.46, BUN/creatine 65 albumin 3.4, CBC with Hg 9.7, RBC 3.47, TSH wnl 4.43, T4 wnl 06/28/2021 - Hg 10.0 06/22/21 - [facility] - CBC w/ diff w/ WBC 22.1 (H), RBC 3.97 (L), Hemoglobin 11.2 (L). BMP w/ Sodium 127 (L), Chloride 93 (L), Glucose 118 (H), Calcium 10.9 (H), BUN 46 (H), Creatinine 1.38 (H), BUN/Creat 33 (H). IMAGING 05/31/24 MRI BRAIN W/O CON COMPARISON: Previous [facility] brain MRI dated March 09, 2023 Impression White matter lesions, compatible with multiple sclerosis. Observations include: T2 LESION BURDEN: Moderate, unchanged from the previous exam. T1 LESION BURDEN: Moderate, unchanged. ENHANCEMENT: Not applicable. VOLUME LOSS: Moderate, unchanged. No acute findings. SIGNED BY: Chet Frost M.D. 03/09/23 MRI BRAIN W/O&W CON COMPARISON: Previous [facility] brain MRI dated March 03, 2022 Impression White matter lesions, compatible with multiple sclerosis. Observations include: T2 LESION BURDEN: Moderate, unchanged from the previous exam. T1 LESION BURDEN: Moderate, unchanged. ENHANCEMENT: None. VOLUME LOSS: Moderate, unchanged. Moderate air-fluid level left maxillary sinus is nonspecific. This appears similar to prior examination. MRI SPINE CERVICAL W/O&W CON COMPARISON: Previous [facility] MRI dated March 03, 2022 Impression Multifocal demyelination along the cervical spinal cord unchanged. No new or enhancing intramedullary lesion. Diffuse spinal cord atrophy is unchanged. MRI SPINE THORACIC W/O&W CON Addendum 03/09/2023 1:11 PM ADDENDUM #1 ADDENDUM: Descending thoracic aortic aneurysm measuring 39 mm unchanged. ORIGINAL REPORT Narrative EXAM: MRI THORACIC SPINE 03/09/2023 10:05 AM. COMPARISON: Previous [facility] thoracic MRI dated March 03, 2022 Impression Demyelinating plaques along the thoracic spinal cord are unchanged. No new or enhancing intramedullary lesion. No spinal cord atrophy. SIGNED BY: Chet Frost M.D. 03/03/22 MRI BRAIN W/O&W CON COMPARISON: 04/05/2021 Impression Scattered T2 hyperintense white matter lesions intracranially compatible with the provided diagnosis of multiple sclerosis, stable since the prior exam dated 04/05/2021. Observations include: 1. T2 Lesion [place]: Moderate, stable. 2. T1 Lesion [place]: Moderate, stable. 3. Lesion Enhancement: None. 4. Parenchymal Loss: Moderate, stable. Comment: None. 1. New left maxillary sinusitis with small air-fluid level, which could reflect acuity of sinus inflammation. MRI SPINE CERVICAL W/O&W CON COMPARISON: 04/02/2021 Impression 1. Chronic demyelination along the cervical and upper thoracic spinal cord, stable since 04/02/2021. No new spinal cord lesion or abnormal cord enhancement is identified. 2. Diffuse cervical and upper thoracic spinal cord atrophy, stable. MRI SPINE THORACIC W/O&W CON COMPARISON: 04/02/2021 Impression 1. Chronic demyelination along the thoracic spinal cord, stable since 04/02/2021. No new spinal cord lesion or abnormal cord enhancement is identified. 2. Stable diffuse thoracic spinal cord thinning. Signed by Mark Lang M.D. MEDICATIONS Current Outpatient Medications: Medication Sig alendronate (FOSAMAX) 70 mg oral tablet Take 1 tablet (70 mg) by mouth every 7 (seven) days before breakfast. amLODIPine (NORVASC) 2.5 mg oral tablet Take 1 tablet (2.5 mg) by mouth once daily. atorvastatin (LIPITOR) 20 mg oral tablet Take 1 tablet (20 mg) by mouth once daily. buPROPion 75 mg oral tablet Take 1 tablet (75 mg) by mouth twice a day. buPROPion XL (WELLBUTRIN XL) 150 mg oral extended release tablet 24 HR Take 1 tablet (150 mg) by mouth once daily. calcium carbonate/vitamin D3 (CALCIUM 500 + D ORAL) Take 600 mg by mouth once daily. 800 IU vitamind cholecalciferol, vitamin D3, 25 mcg, 1000 unit, 25 mcg (1,000 unit) oral tablet Take 4 tablets (100mcg) by mouth once daily. coenzyme N15-rojpvje E 100-5 mg-unit oral Cap Take 200 mg by mouth. CPAP cranberry fruit extract (THERACRAN ORAL) Take 1 tablet by mouth once daily. dalfampridine SR (AMPYRA) 10 mg oral Tab SR 12hr TAKE 1 TABLET BY MOUTH TWICE DAILY Doxycycline Hyclate 100 mg oral TbEC Ferrous Sulfate (HIGH POTENCY IRON) 27 mg iron oral Tab Take 2 tablets by mouth once daily. fexofenadine (VARUN) 180 mg oral tablet Take 180 mg by mouth once daily. glucosamine sulfate 1,000 mg oral Tab Take 1 tablet by mouth twice a day. Lactobac no.41/Bifidobact no.7 (PROBIOTIC-10 ORAL) Take 1 tablet by mouth once daily. methenamine hippurate (HIPREX) 1 gram oral tablet Take 1 tablet (1 g) by mouth twice a day. metoprolol succinate, XL, (TOPROL XL) 50 mg oral extended release tablet 24 HR Take 1 tablet (50 mg) by mouth once daily. multivitamin (CERTAVITE) 18-400 mg-mcg oral tablet Take 1 tablet by mouth once daily. ubidecarenone (COQ-10 ORAL) Take by mouth. UNKNOWN MEDICATIONS Theracurmin 100 mg daily Vit A,C,K-Bszp-Vrebxa (ICAPS AREDS) 14,320-226-200 gpgf-sa-obun oral capsule Take 1 capsule by mouth once daily. zinc sulfate 220 mg oral Cap Take 1 capsule (220 mg) by mouth. ALLERGIES House dust and Bee pollen GENERAL EXAM General: Patient in no acute distress. Cardiovascular: Bilateral lower extremities with no edema. Distal pulses palpable. Respiratory: Breathing non labored. NEUROLOGICAL EXAM BP 121/78 Pulse 81 Mental Status Examination : Alert and oriented. Able to provide some medical history but defers to . Language is fluent. Speech without dysarthria but low volume. Cranial Nerves : Extraocular movements are with saccadic intrusion of smooth pursuits and has nystagmus of left eye when looking left consistent with partial R LUIS ANGEL. Pupils are equal round and reactive to light. VA deferred today. Tongue is midline and palate elevates symmetrically). Shoulder shrug is 5/5 bilaterally. Neck flexion does not illicit abnormal sensation. Motor Examination : Muscle bulk decreased in legs and left hand and tone was increased in legs ( L > R) Strength to confrontational testing was as follows: upper extremities (R/L): Deltoid 5-/4, biceps 5-/4+, triceps 5-/4- wrist extension 4+/3, finger extension 4+/unable to fully extend fingers on her own with passive range ofmotion able to fully extend. Lower extremity is (R/L): Hip flexion <3/0 knee extension <3 /<3, knee flexion <3/0, ankle dorsiflexion 0/ 0, Reflexes : Reflexes - 1+ in uppers. Not able to obtain at knees and ankles due to tone. COORDINATION: No dysmetria on finger nose finger testing, or tremor - limited ROM on left shoulder Sensation : Has loss of vibration below the knees bilaterally. Gait and Station : gait not tested. ASSESSMENT AND PLAN Ms. Rosales is a 74 year old woman with prior diagnosis of multiple sclerosis who uses a wheelchair.She has had initial symptoms in the 1980s and has had slow progression since the early 1999. Discontinued Rebif in 02/2018. Then, updated MRI with new enhancing left cerebellar brain lesion in 09/2018concern for possible stroke vs new MS lesion. MRA imaging done and has L > R carotid artery stenosis but no sigificant stenosis of posterior circulation started on ASA and statin. She started Aubagio in 10/2018 but sided effects with decrease in strength with recurrent UTIs and diarrhea and Aubagio stopped. Restarted Rebif starting in 03/2019 but now stopped in 02/2022 after injection fatigue and labs with ongoing mild anemia. Hx of recurrent UTIs. Now most recently, concern for pressure ulcers ( see below) exam similar to prior. We discussed the following plan: MS - discussed natural hx of MS - Off of DMT in 02/2018. Then concern for new lesion in 10/12/18 but? of infarct vs MS. Tried and failed Aubagio from - 12/2018 with loose stools and increased weakness/recurrentUTI. Now stopped Rebif in 02/2022 MRIs now stable 09/2019, 09/2020 and 03/2021, 02/2022, 02/2023, 05/2024 ( brain only). Also following with Dr. Crowley In [place], now will be Dr. Mala De Dios . In 11/2022 torso weakness event thought to be more gradual progression. Discussed timing of MRis and given symptoms(pressure ulcer) and stability and disease stage - okay to plan more as needed - consider repeat around 2025 pending. Plans to alternative visits with myself and [place] provider. Labs Vit D goal 60 - 05/17 - at goal - plan updated level B12 - goal > 250 - level high in 04/2024 discussed lowering supplement - plan updated level Symptoms Weakness - discussed PT/OT (placed orders for PT for [facility]. Will do home OT orders. . Would like to continue with [facility] if able. On Ampyra - creatinine done 11/2024 reassuring Bladder -now with suprapubic since spring 2020. Reports overall improved infections since suprapubic (has provider in [place] and Dr. Jaramillo for ID) Trending UTis as above - no recent infections Nerve pain - worsened in 2015, now improved- failed trial of GPN, feels biotin helps. Stable to resolved today - Other Carotid artery stenosis - on Asa and statin - Anemia - labs improved in 05/2022 - did increase Fe supplement in spring 2021 - seen first around 2019 - updated labs 11/2022 in [place] CBC wnl Pressure ulcers - Following with wound care in [place]/critical access hospital in [place], admit for osteomyelitis in 09/2024, still working with wound clinic. Last operation/debridement in 01/2025. Considering flap procedure and have seen several specialists. Reviewed hx and goals/risks. For now plan to trend healing. Has had pressure mapping for wheelchair and reviewed mattress ect for prevention. Will call if needs specific orders. F/u - 1 y I spent 37 minutes on the date of the encounter with this patient consisting of activities before, during and after the encounter including time spent: Preparing to see the patient including review of the chart, tests, and/or outside records. Reviewing and verifying information regarding the chief complaint and history already recorded by ancillary staff and/or the patient. Obtaining history and performing medically appropriate evaluation. Counseling the patient regarding the diagnosis, additional diagnostic considerations, possible diagnostic testing, and any potential options for therapy, including conservative/lifestyle measures and pharmacotherapy including risks/benefits, side effects and adverse effects. I also counseled the patient on how to contact me with any questions or concerns, new or worsening symptoms. Ordering medications, tests, and/or procedures, and documenting the chart. I am the single focal point of care for a condition that requires longitudinal relationship and personalized care for condition ( Multiple sclerosis) as specific within this medical record documented in this encounter Plan of Treatment Scheduled Orders Name Type Priority Associated Diagnoses Orde r Schedule VITAMIN D, 25-HYDROXY ([facility]) Lab Routine Vitamin D deficiency Expected: 03/12/2025 (Approximate), Expires: 03/12/2026 VITAMIN B12 ([facility]) Lab Routine Vitamin B12 deficiency Expected: 03/12/2025, Expires: 03/12/2026 Scheduled Referrals Name Type Priority Associated Diagnoses Orde r Schedule REFERRAL PHYSICAL THERAPY Follow Up Routine Multiple sclerosis (HCC) Ordered: 03/12/2025 REFERRAL OCCUPATIONAL THERAPY Follow Up Routine Multiple sclerosis (HCC) Ordered: 03/27/2025 documented as of this encounter Visit Diagnoses Diagnosis Vitamin D deficiency- Primary Unspecified vitamin D deficiency Multiple sclerosis (HCC) Multiple sclerosis Vitamin B12 deficiency Other B-complex deficiencies documented in this encounter Care Teams Tank Pumper Relationship Specialty Start Date End Date Margarette Oropeza NP [address] [place], [place] [phone] PCP - General 03/10/24 Mary Kate Chaudhary MD [address] [place] [address] Neurologist Neurology 11/13/22 [facility] Address: [address], [place] [address] Neurologist Multiple Sclerosis 03/12/25 documented as of this encounter
--- NOTE | 2025-04-24 11:00 | CRLHL7_ITS ---
For Patients: As a result of the Century Cures Act, medical imaging exams and procedure reports are released immediately into your electronic medical record. You may view this report before your referring provider. If you have questions, please contact your health care provider. INDICATION: Nonhealing sacral wound. TECHNIQUE: 26.8 mCi Tc-99m labeled MDP administered. A three-phase bone scan of the lumbosacral spine and pelvis performed. COMPARISON : No comparison or correlative studies. FINDINGS: Flow phase: Normal. Blood pool images: Normal. Delayed images do not demonstrate evidence for focal tracer accumulation within the lumbosacral spine. There are several foci of uptake within bilateral lower ribs on the delayed imaging suggesting rib fractures. Presumed suprapubic catheter draining the urinary bladder. IMPRESSION : No convincing osteomyelitis of the lumbosacral spine. Focal uptake on delayed images involving a few bilateral lower ribs likely related to rib fractures. Dictated by Francis Torres MD @ 04/26/2025 3:22:37 PM (Electronically Signed)
--- OUTSIDE RECORDS SUMMARY | 2025-04-25 00:38 | XMS_ITS | Encounter Summary ---
Author Organization [facility] Address [address] [place] [id number] Care Team Providers Care Ventilator Specialist Name Role Phone Mary Kate Chaudhary MD Unavailable Margarette Oropeza RESPIRATORY CARE ASSISTANT Primary Care Pro vider Encounter Details Date Type Department Care Team (Latest Contact Info) Description 03/12/2025 Travel Social History Tobacco Use Types Packs/Day Years [...] on file documented as of this encounter Plan of Treatment Not on file documented as of this encounter Visit Diagnoses Not on filedocumented in this encounter Care Teams Ventilator Specialist Relationship Specialty Start Date End Date Margarette Oropeza NP [address] [place], [place] [address] PCP - General 03/10/24 Mary Kate Chaudhary MD [address] [place] [address] Neurologist [facility] [address] [facility] [place], [place] [id number] Neurologist Multiple Sclerosis 03/12/25 documented as of this encounter
--- OUTSIDE RECORDS SUMMARY | 2025-04-25 00:38 | XMS_ITS | Referral Summary ---
Author Organization [facility] Address [address] [place] [id number] Care Team Providers Care Brake Drum Molder Name Role Phone Mary Kate Chaudhary MD Unavailable Margarette Oropeza NP Primary Care Pro vider Encounters Date Type Department Care Team Description 03/12/2025 Travel 03/12/2025 1:30 PM CDT Office Visit [facility] [address] [phone] Mary Kate Chaudhary MD Vitamin D deficiency (Primary Dx); Multiple sclerosis (HCC); Vitamin B12 deficiency from Last 3 Months Allergies Active Allergy Reactions Criticality Noted Date Comments Bee Pollen Itching Low 06/09/2012 House Dust 04/13/2021 Medications fexofenadine (VARUN) 180 mg oral tablet Take 180 mg by mouth once daily. Active amLODIPine (NORVASC) 2.5 mg oral tablet Take 1 tablet (2.5 mg) by mouth once daily. Active atorvastatin (LIPITOR) 20 mg oral tablet Take 1 tablet (20 mg) by mouth once daily. Active ubidecarenone (COQ-10 ORAL) Take by mouth. A ctive alendronate (FOSAMAX) 70 mg oral tablet Take 1 tablet (70 mg) by mouth every 7 (seven) days before breakfast. Active CPAP Active glucosamine sulfate 1,000 mg oral Tab Take 1 tablet by mouth twice a day. Active multivitamin (CERTAVITE) 18-400 mg-mcg oral tablet Take 1 tablet by mouth once daily. Active Lactobac no.41/Bifidobact no.7 (PROBIOTIC-10 ORAL) Take 1 tablet by mouth once daily. Active cranberry fruit extract (THERACRAN ORAL) Take 1 tablet by mouth once daily. Active cholecalciferol, vitamin D3, 25 mcg, 1000 unit, 25 mcg (1,000 unit) oral tablet Take 4 tablets (100 mcg) by mouth once daily. Active metoprolol succinate, XL, (TOPROL XL) 50 mg oral extended release tablet 24 HR Take 1 tablet (50 mg) by mouth once daily. Active buPROPion XL (WELLBUTRIN XL) 150 mg oral extended release tablet 24 HR Take 1 tablet (150 mg) by mouth once daily. Active buPROPion 75 mg oral tablet Take 1 tablet (75 mg) by mouth twice a day. Active Vit A,C,S-Qytx-Jdvvj r (ICAPS AREDS) 14,320-226-200 pvwu-gd-mrku oral capsule Take 1 capsule by mouth once daily. Active calcium carbonate/vitami n D3 (CALCIUM 500 + D ORAL) Take 600 mg by mouth once daily. 800 IU vitamin d Active UNKNOWN MEDICATIONS Theracurmin 100 mg daily Active Ferrous Sulfate (HIGH POTENCY IRON) 27 mg iron oral Tab Take 2 tablets by mouth once daily. Active methenamine hippurate (HIPREX) 1 gram oral tablet Take 1 tablet (1 g) by mouth twice a day. Active coenzyme [id number]-qykbauc E 100-5 mg-unit oral Cap Take 200 mg by mouth. Active zinc sulfate 220 mg oral Cap Take 1 capsule (220 mg) by mouth. Active Doxycycline Hyclate 100 mg oral TbEC 5 Active dalfampridine SR (AMPYRA) 10 mg oral Tab SR 12hr Take 1 tablet (10 mg) by mouth Twice a Day. 180 tablet 1 5 Active Active Problems Problem Noted Date Diagnosed Date Extended spectrum beta lactamase (ESBL) resistan ce 2024 Chronic osteomyelitis 09/28/2024 Generalized muscle weakness 09/26/2024 Dependence on enabling machine 04/13/2021 Dilatation of aorta 04/13/2021 Disorder of carotid artery 04/13/2021 Moderate protein-calorie mal nutrition (weight for age 60-74% of standard) 04/13/2021 Osteoporosis 04/13/2021 Pain in joint involving ankle and foot Spinal stenosis of lumbar region 04/13/2021 ACP (advance care planning) 03/30/2021 Overview (03/12/2025): Patient has identified Health Care Agent(s): Yes Add Health Care Agents: Yes Health Care Agent(s): Primary Health Care Agent: Roshan Rosales Relationship: spouse Phone: Secondary Health Care Agent: Relationship: Phone: Conservator: Relationship: Phone: Guardian: Relationship: Phone: Patient has Advance Care Plan Documents (Health Care Directive, POLST): Yes Advance Care Plan Documents: Health Care Directive Patient has identified Specific Treatment Preferences: Yes How have preferences been verified: verbal Specific Treatment Preferences: a.) Code Status: CPR/Attempt Resuscitation Per HCD, DNR/DNI if terminal illness. They do not consider MS a terminal illness. Rhonda Vick MD .................... 03/30/2021 3:55 PM Aneurysm of infrarenal abdominal aorta 8 Overview (03/12/2025): 10/2018 3.2x3.0 cm Other sleep disorders 04/30/2015 Vitamin D deficiency, unspecified 04/30/2015 Obstructive sleep apnea (adult) (pediatric) 11/2012 Lesion of ulnar nerve, left upper limb 3 Essential (primary) hypertension 03/13/2013 Carpal tunnel syndrome, unspecified upper limb 0 03/13/2013 Disuse osteoporosis 02/08/2006 Overview (03/12/2025): Completed 5+ years bisphosphonate therapy, restarted with worsening of bone density Moderate episode of recurrent major depressive d isorder 02/08/2006 Resolved Problems Problem Noted Date Diagnosed Date Resolved Date Pressure ulcer of left buttock, stage 4 2024 03/12/2025 Multiple sclerosis exacerbation 09/26/2024 03/12/2025 Open wound of left buttock 09/26/2024 0 03/12/2025 Diverticulosis of large inte kandy without diverticulitis 04/13/2021 03/12/2025 Open wound of lower leg 04/13/2021 0506/2025 Hematuria due to acute cystitis 04/04/2021 03/12/2025 Immunizations Immunization Administration Dates Next Due COVID-19 (SARS-COV-2) UNSPECIFIED 08/25/2023,10/2020 Influenza High Dose (Fluzone Quadrivalent PF) 10/01/2022,08/15/2018 Influenza Unspecified 08/25/2023 Influenza recombinant (FluBl ok Quadrivalent PF) 10/08/2017 Influenza split virus (Fluzo ne Quadrivalent PF) 10/08/2017 Influenza split virus quadrivalent 03/09/2022(De ferred: Out of Stock) Moderna 12+ Yrs Bivalent COV ID Vaccine (Blue cap) 10/21/2022 Pneumococcal PCV13 10/25/2020, 8,07/08/2016,2015,06/14/2015,10/25/2014,10/25/2013 Pneumococcal PPSV23 10/25/2017, 6,10/25/2015,2013 SPIKEVAX (Moderna) 12+ Yrs M onovalent COVID Vaccine (stamp redemption clerk) 08/25/2021,01/19/2021,01/04/2021,2020 Td adult absorbed PF (2 Lf) 01/03/2009, 9,04/18/1999 Tdap 06/10/2022 UNSPECIFIED SARS-CoV-2 Vaccination 09/24,09/15/2021,08/25/2021,2020,01/04/2021,12/23/2020,12/07/2020 Zoster Live 07/07/2012 Social History Tobacco Use Types Packs/Day Years Used Date Smoking Tobacco: Never Smokeless Tobacco: Never Alcohol Use Standard Drinks/Week Comments Not Currently 0 (1 standard drink = 0.6 oz pur e alcohol) Comments Unknown Sex and Gender Information Value Date Recorded Sex Assigned at Not on file Legal Sex Female 7:07 PM CDT Gender Identity Not on file Sexual Orientation Not on file Last Filed Vital Signs Vital Sign Reading Time Taken Comments Blood Pressure 121/78 03/12/2025 1:40 PM CDT Pulse 81 03/12/2025 1:40 PM CDT Temperature - - Respiratory Rate - - Oxygen Saturation - - Inhaled Oxygen Concentration - - Weight 65.8 kg (145 lb) 05/31/2024 9:41 AM CDT Height 172.7 cm (5' 8) 05/31/2024 9:41 AM CDT Body Mass Index 22.05 05/31/2024 9:41 AM CDT Plan of Treatment Not on file Insurance [facility] AARP/MEDICARE SUPPLEMENT MEDICARE PART A & B MEDICARE PART A & B Care Teams Brake Drum Molder Relationship Specialty Start Date End Date Margarette Oropeza NP [address] [place] [address] PCP - General 03/10/24 Mary Kate Chaudhary MD [address] [place] [address] Neurologist Neurology 11/13/22 [facility] Address: [address] [facility], [place] [address] Neurologist Multiple Sclerosis 03/12/25
--- OUTSIDE RECORDS SUMMARY | 2025-04-25 00:39 | XMS_ITS | Clinical Summary ---
Author Organization [facility] Address [address] [place] [address]. [place] [address] Care Team Providers Care Database Development Project Manager Name Role Phone Margarette Escamilla NP Primary Care Provider Allergies Active Allergy Reactions Criticality Noted Date Comments No Known Allergies 02/04/1999 Smoke. 01/18/2002 cigarette Medications AVONEX KIT 30 MCG/VIAL IM 1cc once per week 4 0 02/04/1999 Active LECITHIN CAPS 500 MG OR 2 tabs twice daily 0 01/18/2002 Active VITAMIN E CAPS 400 IU OR 2 tabs twice daily 0 01/18/2002 Active CALCIUM LIQUID CAPS 600-200 MG-IU OR 0 01/18/2002 Active ASPIRIN TABS 81 MG OR 1 tab po QD (Once per day) 100 3 01/18/2002 Active LEVSIN 0.125 MG OR TABS 1 TABLET 4 TIMES DAILY 0 0 07/14/2002 Active CEFUROXIME AXETIL 250 MG OR TABS 1/2 TABLET EVERY Q AM 0 0 07/14/2002 Active Active Problems Problem Noted Date Diagnosed Date Multiple sclerosis 10/25/1998 Menopausal and postmenopausal disorder Overview (07/25/2015): Problem list name updated by automated process. Provider to review Allergic rhinitis Overview (07/25/2015): Problem list name updated by automated process. Provider to review Depressive disorder, not elsewhere classified Irritable bowel syndrome Other disorder of optic nerve Immunizations Immunization Administration Dates Next Due TD,PF 7+ (Tenivac) 04/18/1999,10/25/1988 009 Family History Medical History Relation Comments Hypertension Father FEBRUARY; compli cations of bypass surgery and emphysema Heart Disease Mother cabg Cancer No family hx of Diabetes No family hx of Relation Status Comments Father Mother Social History Tobacco Use Types Packs/Day Years Used Date Smoking Tobacco: Never Alcohol Use Standard Drinks/Week Comments Yes 0 (1 standard drink = 0.6 oz pur e alcohol) quit 1978 Adolescent Education Answer Date Record ed Getting School Help Needed Not on file 07/31 Comments No Sex and Gender Information Value Date Recorded Sex Assigned at Not on file Legal Sex Female 2:58 AM STORE PROTECTION SPECIALIST Gender Identity Not on file Sexual Orientation Not on file Last Filed Vital Signs Vital Sign Reading Time Taken Comments Blood Pressure 110/78 07/14/2002 1:30 PM CDT Pulse 104 03/09/2002 11:30 AM CDT Temperature 36.8 C (98.2 F) 04/13/2002 11:30 AM CDT Respiratory Rate - - Oxygen Saturation - - Inhaled Oxygen Concentration - - Weight 71.7 kg (158 lb) 07/14/2002 1:30 PM CDT Height 172.7 cm (5' 8) 06/18/2001 9:15 AM CDT Body Mass Index 24.02 06/18/2001 9:15 AM CDT Plan of Treatment Not on file Insurance MEDICARE MEDICARE [facility] Care Teams Database Development Project Manager Relationship Specialty Start Date End Date Margarette Escamilla NP PCP - General Nurse Practitioner - Gerontology 09/14/17
--- OUTSIDE RECORDS SUMMARY | 2025-04-25 00:39 | XMS_ITS | Data Portability ---
Author Organization [place] [facility] - Outpatient Address [address] [place] [address] Care Team Providers Care Insulation Board Calender Operator Name Role Phone RENE COTTO Referring Provider Assessment No assessment recorded. Plan of Treatment Reminders Order Date Submit Date Provider Last Modified By Organization Details Last Modified Time Details Appointments None recorded. Lab CBC w/ auto diff 2021 [facility] [place] [facility], [address] [place], [address], 04:53:40 Referral None recorded. Procedures upper endoscopy procedure (EGD) (PROC) 2021 022 [email or web address] Not available 11:33:25 colonoscopy procedure (PROC) 2021 022 [email or web address] Not available 11:33:16 Surgeries None recorded. Imaging None recorded. Medication Orders None recorded. Patient TargetsNo targets recorded. Patient Instructions Encounter Date Encounter Id Patient Instructions Last Modified By Organization Details Last Modified Time 12/29/2021 [id number] sleep apnea: car e instructions Not available 01/05/2022 11:34:12 high cholesterol : care instructions Not available 01/05/2022 11:34:13 multiple sclerosis (MS): care instructions Not available 01/05/2022 11:34:12 anemia: care instructions Not available 01/05/2022 11:34:13 Reason for Referral None Reported. Results Created Date Observation Date Name Description Value Unit Range Abnormal Flag Note LastModifiedBy Organization Detail LastModifiedTime 12/31/1912/31/2021 CBC (INCL UDES DIFF/ PLT) white blood cell count 4.6 thous and/u L 3.8-10 .8 normal Not Available [facility] [address], [place], [address], 12/31/2021 04:53:40 12/31/19 22 12/31/2021 CBC (INCL UDES DIFF/ PLT) red blood cell count 3.76 valerio on/uL 3.80-5 .10 low Not Available [facility] [address], [place], [address], 12/31/2021 04:53:40 12/31/19 22 12/31/2021 CBC (INCL UDES DIFF/ PLT) hemoglobin 10.5 g/dL 11.7-1 5.5 low Not Available [facility] [address], [place], [address], 12/31/2021 04:53:40 12/31/19 22 12/31/2021 CBC (INCL UDES DIFF/ PLT) hematocrit 31.9 % 35.0-4 5.0 low Not Available [facility] [address], [place], [address], 12/31/2021 04:53:40 12/31/19 22 12/31/2021 CBC (INCL UDES DIFF/ PLT) MCV 84.8 fL 80.0-1 00.0 normal Not Available [facility] [address], [place], [address], 12/31/2021 04:53:40 12/31/19 22 12/31/2021 CBC (INCL UDES DIFF/ PLT) MCH 27.9 pg 27.0-3 3.0 normal Not Available [facility] [address], [place], [address], 12/31/2021 04:53:40 12/31/19 22 12/31/2021 CBC (INCL UDES DIFF/ PLT) MCHC 32.9 g/dL 32.0-3 6.0 normal Not Available [facility] [address], [place], [address], 12/31/2021 04:53:40 12/31/19 22 12/31/2021 CBC (INCL UDES DIFF/ PLT) RDW 14.9 % 11.0-1 5.0 normal Not Available [facility] [address], [place], [address], 12/31/2021 04:53:40 12/31/19 22 12/31/2021 CBC (INCL UDES DIFF/ PLT) platelet count 272 thous and/u L 140-40 0 normal Not Available [facility] [address], [place], [address], 12/31/2021 04:53:40 12/31/19 22 12/31/2021 CBC (INCL UDES DIFF/ PLT) MPV 10.0 fL 7.5-12 .5 normal Not Available [facility] [address], [place], [address], 12/31/2021 04:53:40 12/31/19 22 12/31/2021 CBC (INCL UDES DIFF/ PLT) absolute neutrophils 2452 cells /uL 1500-7 800 normal Not Available [facility] [address], [place], [address], 12/31/2021 04:53:40 12/31/19 22 12/31/2021 CBC (INCL UDES DIFF/ PLT) absolute lymphocytes 1288 cells /uL 850-39 00 normal Not Available [facility] [address], [place], [address], 12/31/2021 04:53:40 12/31/19 22 12/31/2021 CBC (INCL UDES DIFF/ PLT) absolute monocytes 511 cells /uL 200-95 0 normal Not Available [facility] [address], [place], [address], 12/31/2021 04:53:40 12/31/19 22 12/31/2021 CBC (INCL UDES DIFF/ PLT) absolute eosinophils 308 cells /uL 15-500 normal Not Available [facility] [address], [place], [address], 12/31/2021 04:53:40 12/31/19 22 12/31/2021 CBC (INCL UDES DIFF/ PLT) absolute basophils 41 cells /uL 0-200 normal Not Available [facility] [address], [place], [address], 12/31/2021 04:53:40 12/31/19 22 12/31/2021 CBC (INCL UDES DIFF/ PLT) neutrophils 53.3 % normal Not Available [facility] [address], [place], [address], 12/31/2021 04:53:40 12/31/19 22 12/31/2021 CBC (INCL UDES DIFF/ PLT) lymphocytes 28.0 % normal Not Available [facility] [address], [place], [address], 12/31/2021 04:53:40 12/31/19 22 12/31/2021 CBC (INCL UDES DIFF/ PLT) monocytes 11.1 % normal Not Available [facility] [address], [place], [address], 12/31/2021 04:53:40 12/31/19 22 12/31/2021 CBC (INCL UDES DIFF/ PLT) eosinophils 6.7 % normal Not Available [facility] [address], [place], [address], 12/31/2021 04:53:40 12/31/19 22 12/31/2021 CBC (INCL UDES DIFF/ PLT) basophils 0.9 % normal Not Available [facility] [place] [facility] [address], [place], [address], 12/31/2021 04:53:40 Result Notes None recorded. Problems Name Problem SNOMED Code Status Onset Date Resolution Date Notes Provider Name and Address Organization Details Recorded Time Anemia 346841791 Active 2021 JUANITO Sadler, [place] - [facility] 2 10:07:01 Hypertensi ve disorder 11870396 Active 2021 JUANITO Sadler, [place] - [facility] 2 10:07:09 Hyperlipid emia 89310678 Active 2021 JUANITO Sadler, [facility] 2 10:07:15 Obstructiv e sleep apnea syndrome 16056033 Active 2021 JUANITO Sad[place], [place] - [facility] 2 10:07:22 Multiple sclerosis 19584235 Active 2021 JUANITO Sad[place], [place] - [facility] 2 10:08:55 Fatigue 08360751 Active 2021 JUANITO Sadler, [place] - [facility] 2 10:52:12 Problem Notes None recorded. Procedures Surgical History Date Name Laterality Status Provider Name and Address Organization Details Recorded Time 02/28/20 14 colonoscopy completed Paige Euceda MA [facility] 12/29/2021 10:14:28 hip surgery completed Paige Euceda MA [facility] 12/29/2021 10:08:06 procedure involving suprapubic catheter completed Paige Euceda MA [facility] 12/29/2021 10:20:53 Imaging Results None recorded. Procedure Notes None recorded. Medical Equipment None Reported. Allergies No known drug allergies Medications Name Sig Start Date Stop Date Status Note LastModified by Organization Details LastModified Time Miralax 17 gram/dose oral powder Take 17 g every day by oral route. active Not Available Not Available No t Available atorvastatin 20 mg tablet Take 1 tablet every day by oral route. active Not Available Not Available No t Available metoprolol succinate ER 50 mg tablet,extende d release 24 hr Take 1 tablet every day by oral route. active Not Available Not Available No t Available Hiprex 1 gram tablet Take 1 tablet twice a day by oral route. active Not Available Not Available No t Available amlodipine 2.5 mg tablet Take 1 tablet every day by oral route. active Not Available Not Available No t Available Wellbutrin XL 150 mg 24 hr tablet, extended release Take 1 tablet every day by oral route. active Not Available Not Available No t Available magnesium active Not Available Not Kiesha ilable Not Available Co Q-10 active Not Available Not Avail able Not Available Fosamax 70mg po once a week active Not Available Not Available No t Available calcium active Not Available Not Avail able Not Available iron active Not Available Not Availa ble Not Available Glucosamine active Not Available Not A vailable Not Available trazodone 25mg po qd active Not Available Not Available No t Available Vitamin D3 active Not Available Not Av ailable Not Available Miri active Not Available Not Avail able Not Available multivitamin active Not Available Not Available Not Available Rebif 44mcg 3times per week active Not Available Not Available No t Available Sapna C active Not Available Not Avail able Not Available Probiotic active Not Available Not Kiesha ilable Not Available Imvexxy 10mcg twice a week active Not Available Not Available No t Available aspirin 81 mg capsule Take 1 capsule every day by oral route. active Not Available Not Available No t Available Vitals Date Recorded Body temperature Provider Name and Address Organization Details Last Updated DateTime 12/29/2021 98.8 [degF] Liliam Beebe [place] [facility] 12/29/2021 10:04:59 Date Recorded Body weight Body height Body mass index (BMI) Heart rate Systolic And Diastolic Provider Name and Address Organization Details Last Updated DateTime 12/29/2021 05677.93 g 172.72 cm 21.3 kg/m2 85 /min 128/65 mm[Hg] Paige Euceda [place] [facility] 10:19:19 Social History None recorded. Functional Status Question Answer Note LastModified by Organization D etails LastModified Time What is your level of alcohol consumption? None [email or web address] Information not available 12/29/2021 Mental Status None recorded. Family History Relationship Description Onset Age of this Age Resolved Age Notes LastModified by Organization Details LastModified Time Father Chronic obstructive pulmonary disease [email or web address] Not available 2021 10:07:42 Mother Cerebrovascu lar accident [email or web address] Not available 04/2022 10:07:49 Medical History Condition Response Patient notes problems with surgery invo lving neck, jaw, hip, knee or back Y Nerves Y High Blood Pressure Y Irregular heartbeat Y High Cholesterol Y Patient is taking blood thinner on reg b asis Y Patient notes arm or leg that is weak or becomes weak Y Eye Problems Y MS Y Gynecological HistoryNo gynecological history recorded. Obstetrics History GPAL:G 0 P 0 0 0 0 Past Encounters Encounter ID Performer Location Encounter Start Date Encounter Closed Date Diagnosis/Indication Diagnosis SNOMED-CT Code Diagnosis ICD10 Code Diagnosis Note [id number] Jordan Rodriguez MD *OFFICE - [address] [address] 12/29/2021 09:42:26 12/29/2021 11:00:50 Anemia 199074374 D64.9 -labs done 12/15/21, HGB 9.7 L-EGD/colo noscopy to be done at hospital as OP-continu e Iron daily, hold 5 days prior to procedures -daily BMs, taking Miralax once daily-CBC today or tomorrow Multiple sclerosis 81713 007 G35 -patient will need HH for prep (already establishe d with [facility]) Hypertensive disorder 38 489979 I10 Hyperlipidemia 01618297 E78.5 Obstructiv e sleep apnea syndrome 91607188 G47.33 -CPAP Fatigue 76974275 R53.83 Health Concerns Section Related Observation LastModified by Organization Detai ls LastModified Time None Recorded Concern Status LastModified by Organization Details LastModified Time None Recorded Advance Directives Directive None Recorded Payers Insurance Date Sequence Insurance Name Policy Number Policy Roberts Covered Member ID Roberts Member ID Guarantor Name 01/05/2022 2 AARP (MEDICARE SUPPLEMENT) Antoinette Rosales [id number] Antoinette Rosales 12/26/2021 1 [place] Antoinette Rosales [id number] Antoinette Rosales Notes Date Note Type Note Provider Name and Address Organization Details Recorded Time 12/29/2021 text/html Patient is a 71 year old female here referred due to anemia. Patient, today reports fatigue/tiredness . Taking Iron, which make her stool darker than normal, not black. Having daily BMs, taking Miralax daily.Labs done 12/15, revealed HGB 9.7 L, HCT 29.2 L.Last colonoscopy was 2013, per caregiver. Jordan mendes, [place] - [facility] 01/05/2022 13:08:33 OBGyn Episode No OBEpisode recorded.
--- OUTSIDE RECORDS SUMMARY | 2025-04-25 00:39 | XMS_ITS | Clinical Summary ---
Author Organization [facility] Address [address] [place] [address] Care Team Providers Care Machine Sizer Name Role Phone Mary Kate Chaudhary MD Unavailable Margarette Oropeza NP Primary Care Pro vider Allergies Active Allergy Reactions Criticality Noted Date [...] by mouth twice a day. Active Vit A,C,M-Vrnu-Rogkd r (ICAPS AREDS) 14,320-226-200 ajwb-up-tiew oral capsule Take 1 capsule by mouth [...] by mouth twice a day. Active coenzyme E46-uauekmx E 100-5 mg-unit oral Cap Take 200 [...] Pain in joint involving ankle and foot 1 Spinal stenosis of lumbar region 04/13/2021 ACP [...] 04/13/2021 03/12/2025 Open wound of lower leg 04/13/202102/22 Hematuria due to acute cystitis 04/04/2021 03/12/2025 Encounters Date Type Department Care Team Description 03/12/2025 1:30 PM CDT Office Visit [facility] [address] [phone] Mary Kate Chaudhary MD Vitamin D deficiency (Primary Dx); Multiple sclerosis (HCC); Vitamin B12 deficiency 03/12/2025 Travel from Last 3 Months Immunizations Immunization Administration Dates Next Due COVID-19 [...] (Moderna) 12+ Yrs M onovalent COVID Vaccine (credit representative) 08/25/2021,01/19/2021,01/04/2021,2020 Td adult absorbed PF (2 Lf) 01/03/2009, 9,04/18/1999 Tdap 06/10/2022 UNSPECIFIED SARS-CoV-2 Vaccination 09/24,09/15/2021,08/25/2021,2020,01/04/2021,12/23/2020,12/07/2020 Zoster Live 07/07/2012 Family History Medical History Relation Comments Arthritis Other Heart Failure Other Multiple Sclerosis Other Relation Status Comments Other Social History Tobacco Use Types Packs/Day Years [...] 05/31/2024 9:41 AM CDT Plan of Treatment Health Maintenance Due Date Last Done Comments Depression Follow-Up (PHQ-9) 1951 Yearly Review of HCD 1998 Zoster Vaccine (2 of 3) 09/01/2012 07/07/2012 Osteoporosis Screening 05/16/2021 05/16/2019, 2016 Medicare Wellness Visit 09/26/2021 09/26/2020 RSV Vaccines (1 - 1-dose 75+ series) 2023 COVID-19 Vaccine (2023- season) 2024 08/25/2023, 10/21/2022, 09/24/2022, Additional history exists Influenza Vaccine (Season Ended) 2025 08/25/2023, 10/01/2022, 08/31/2020, Additional history exists Colonoscopy 06/25/2027 06/25/2017, 10/2013, 11/24/2013 Adult Tetanus Booster 06/10/2032 06/10/2022 , 01/03/2009, 12/23/2008, Additional history exists Hepatitis C Screening Completed 12/04/2013 Pneumococcal 50+ Years Completed , 10/25/2017, 10/25/2017, Additional history exists Meningococcal B Vaccine Aged Out No l onger eligible based on patient's age to complete this topic Insurance [facility] AARP/MEDICARE SUPPLEMENT MEDICARE PART A & B MEDICARE PART A & B Care Teams Machine Sizer Relationship Specialty Start Date End Date Margarette Oropeza NP [address] [place] [address] PCP - General 03/10/24 Mary Kate Chaudhary MD [address] [place] [address] Neurologist Neurology 11/13/22 [facility] Address: [address] [place] [address] Neurologist Multiple Sclerosis 03/12/25
--- OUTSIDE RECORDS SUMMARY | 2025-04-25 00:39 | XMS_ITS | Clinical Summary ---
Author Organization [facility] Address [address] [place] [address] Care Team Providers Care Straddle Truck Driver Name Role Phone Randy Priti WAN Unavailable [phone] Neville Vasquez MD Unavailable Margarette Oropeza CAMPAIGN MANAGER Primary Care Pro vider Mary Kate Chaudhary MD Unavailable Dali Jaramillo MD Unavailable [phone] Allergies Active Allergy Reactions Criticality Noted Date Comments Teriflunomide Diarrhea 05/02/2019 House Dust Itching 06/09/2012 Pollen Extracts Itching 06/09/2012 Medications Wheel ChairIndications:Multi ple sclerosis (HC) Wheelchair: Standard with leg rests: (Swing away Length of need: 99 months 1 Device 0 2015 Active Lacto no.41-B.bifid-B.animal is (Advanced Probiotic-10) 13 mg (3 billion cell) capIndications:Therape utic Take 1 Capsule by mouth once daily. 0 2020 Active medication order composerIndications:Th erapeutic Theracran One 360 mg by mouth once daily in the morning 0 2020 Active coenzyme q10 100 mg capIndications:Therape utic Take 2 Capsules (200 mg) by mouth once daily. 0 2020 Active fexofenadine (VARUN) 180 mg tabletIndications:Envi ronmental allergies Take 180 mg by mouth once daily. 30 tablet. 6 2020 Active cholecalciferol (VITAMIN D3) 2,000 unit capsuleIndications:Dis use osteoporosis Take 2 Capsules (4,000 units) by mouth once daily. 0 2020 Active multivitamin (MVI) tabletIndications:Ther apeutic Take 1 Tablet by mouth once daily. 0 2020 Active FaqA-S4-N-K-Nwdfzo-Qmo xant-Min (ICaps) 3,[id number] qxvi-us-zn-unit TbERIndications:Therap eutic Take 1 Capsule by mouth once daily. 0 2020 Active polyethylene glycol (Miralax) 17 g powder for solutionIndications:Co nstipation, unspecified constipation type Mix 17 g (1 Packet) in liquid then take by mouth once daily if needed for Constipation. 0 2020 Active ascorbic acid, vitamin C, (VITAMIN C) 250 mg tabletIndications:Urin casa tract infection with hematuria, site unspecified Take 2 tablets by mouth 2 times daily for UTI suppression therapy. 120 Tablet 07/06/20 21 11:39 AM CDT 2020 Active glucosamine (Glucosamine Relief) 1,000 mg tabIndications:Therape utic Take 1.5 Tablets (1,500 mg) by mouth once daily. Take 1,000 mg by mouth 2 times daily. 0 2021 Active ferrous sulfate, 65 mg elemental, tabletIndications:Ther apeutic Take 1 Tablet (325 mg) by mouth in the morning and 1 Tablet (325 mg) in the evening. Take with meals. 180 Tablet 2021 Active xlljlqs-bdkkhxmm-N7-K2 -silicon 200 mg calcium- 200 unit tab Take by mouth. 0 2021 Active medication order composer theracurmin 100mg daily 0 2021 Active methenamine hippurate (HIPREX) 1 gram tablet Take 1 tablet(s) twice a day by oral route. 190 Tablet 3 2022 Active collagenase (SantyL) ointment Apply ointment topical once daily 30 g 2 2023 Active nystatin powder (MYCOSTATIN) powder Apply once daily 30 g 1 03/30/20 24 3:33 PM CDT 2023 Active CPAPIndications:ARI (obstructive sleep apnea) CPAP machine for home use at pressure 11-16, Mask of choice x 1 q 3mo, nasal cushion x 2 q 1mo, nasal pillow x 2 q 1mo, and full-face cushion x 1 q 1mo, Length of need: 99, Daily use. 1 Each 11 2023 Active doxycycline hyclate 100 mg capsule Take 1 capsule twice a day for 7 days 14 Capsule 04/03/20 25 11:28 AM CDT 2024 Active alendronate 70 mg tabletIndications:Disu se osteoporosis TAKE 1 TABLET BY MOUTH WEEKLY IN THE MORNING TAKE ON EMPTY STOMACH WITH FULL GLASS OF WATER 1/2 HOUR BEFORE BREAKFAST 13 Tablet 2024 Active amLODIPine 5 mg tabletIndications:Esse ntial hypertension TAKE 1 TABLET BY MOUTH ONCE DAILY 90 Tablet 2024 Active atorvastatin 20 mg tabletIndications:Pure hypercholesterolemia TAKE 1 TABLET BY MOUTH ONCE DAILY 90 Tablet 2024 Active buPROPion 75 mg HCl tabletIndications:Brianna r depressive disorder, recurrent episode, moderate (HC) TAKE 2 TABLETS BY MOUTH IN THE MORNING AND 2 TABLETS BY MOUTH AT BEDTIME 360 Tablet 2024 Active metoprolol succinate 50 mg sustained-release tabletIndications:Esse ntial hypertension TAKE 1 TABLET BY MOUTH ONCE DAILY 90 Tablet 2024 Active metoprolol succinate (TOPROL XL) 50 mg sustained-release tabletIndications:Esse ntial hypertension Take 1 Tablet (50 mg) by mouth once daily. 90 Tablet 3 04/21 Discontinued atorvastatin (LIPITOR) 20 mg tabletIndications:Pure hypercholesterolemia Take 1 Tablet (20 mg) by mouth once daily. 90 Tablet 3 04/21 Discontinued alendronate (FOSAMAX) 70 mg tabletIndications:Disu se osteoporosis Take 1 Tablet (70 mg) by mouth once a week in the morning. Take on empty stomach with full glass of water 30 minutes before breakfast. 12 Tablet 3 04/16 Discontinued amLODIPine (NORVASC) 5 mg tabletIndications:Esse ntial hypertension Take 1 Tablet (5 mg) by mouth once daily. 90 Tablet 3 04/21 Discontinued buPROPion 75 mg HCl tabletIndications:Brianna r depressive disorder, recurrent episode, moderate (HC) TAKE 2 TABLETS BY MOUTH IN THE MORNING AND 2 TABLETS BY MOUTH AT BEDTIME 360 Tablet 04/21 Discontinued Active Problems Problem Noted Date Diagnosed Date Suprapubic catheter 05/09/2024 Spastic hemiplegia affecting right dominant side, unspecified etiology 05/09/2024 Rheumatoid arthritis, involv ing unspecified site, unspecified whether rheumatoid factor present 05/14/2022 Paroxysmal atrial fibrillation 07/11/2021 NIMA (acute kidney injury) 06/22/2021 Fibula fracture 06/22/2021 Suprapubic catheter dysfunction 06/22/2021 Hyponatremia 06/22/2021 Hypercholesterolemia 05/20/2021 Overview (05/20/2021): Lipid panel in [place] 11/04/20: cholesterol - 170, triglycerides - 67, HDL cholesterol - 77, LDL- cholesterol - 79, Non HDL cholesterol - 93. Hypokalemia 04/07/2021 Constipation 04/07/2021 ACP (advance care planning) 03/30/2021 Overview (03/30/2021): Patient has identified Health Care Agent(s): Yes [...] Rhonda Vick MD .................... 03/30/2021 3:55 PM Urge incontinence of urine 03/30/2021 Essential hypertension 10/09/2019 Age-related osteoporosis wit hout current pathological fracture 05/17/2019 Stenosis of left carotid artery 05/03/2019 Overview (05/03/2019): MRA 10/29/18 On aspirin and statin Neurogenic bladder 09/26/2018 Dilatation of aorta 03/17/2018 Overview (09/26/2020): Ultrasound 03/16/2018: Proximal aorta 3.8 cm, mid aorta 3.6 cm, distal aorta 3 cm diameter 05/03/20: CT scan Aneurysmal dilatation of the aorta, which measures 4.0 x 4.2 cm at the level of the diaphragm, 3.3 x 3.5 cm at the level of the kidneys 3.1 x 3.3 cm below the kidneys. Spinal stenosis of lumbar re gion without neurogenic claudication 03/14/2018 Overview (03/14/2018): CT January 2018 Aneurysm of infrarenal abdominal aorta 8 Overview (05/03/2019): 10/2018 3.2x3.0 cm ARI (obstructive sleep apnea) 10/26/2012 Overview (07/10/2013): Study 09/30/2012 at [place] [facility] Environmental allergies 07/22/2009 Overview (07/22/2009): Dust and pollen Diverticulosis of colon (without mention of hemo rrhage) 07/22/2009 health maintenance 07/22/2009 Overview (05/17/2019): Last Lipids 01/2019 total 146 HDL 55 LDL 72 Triglycerides 105 12/31 pap negative, mammogram 10/2018 dexa osteopenia spine 0.0 Hip -2.0, completed bis therapy, resumed 03/2017 osteoporosis - resumed Alendronate. 03/2019 osteoporosis stable. Follow up suggested 3 years Colonoscopy 02/27/14 normal, due in 10 years Multiple sclerosis 02/08/2006 Overview (06/14/2015): Dr. Chaudhary is the neurologist Spastic hemiplegia Gait abnormality Neurogenic bladder Goes to [facility] physical therapy 3 times week Depression 02/08/2006 Disuse osteoporosis 02/08/2006 Overview (03/14/2018): Completed 5+ years bisphosphonate therapy, restarted with worsening of bone density Overactive bladder Resolved Problems Problem Noted Date Diagnosed Date Resolved Date Severe malnutrition 04/13/2021 06/14/20 22 Left ankle pain 03/31/2021 05/20/2021 Multiple Sclerosis flare(HC) 03/30/2021 05/20/2021 Ureteritis 03/30/2021 05/20/2021 Acute cystitis with hematuria 03/30/2021 05/20/2021 Leg wound, left 03/30/2021 05/20/2021 UTI (urinary tract infection) 09/26/2015 05/20/2021 Acute dyspnea 03/22/2014 10/02/2014 Fever 03/22/2014 10/02/2014 Leukopenia 03/22/2014 03/28/2014 Dehydration 03/22/2014 03/28/2014 Hyperglycemia 03/22/2014 03/28/2014 Neurogenic bladder, NOS 03/17/201206/25 Insomnia, unspecified 07/22/20092010 Neurogenic bladder, NOS 02/09/200612/2017 Overview (06/09/2012): botox done 04/05 and does have some voiding, but is uninfected. Has had kidney stones , lithotripsy x 2 Closed fracture of unspecifi ed part of neck of femur 02/08/2006 06/22/2011 Overview (02/08/2006): s/p ORIF Spastic hemiplegia affecting nondominant side 02/09/20 06 12/24/2011 Abnormality of gait 02/08/2006 12/24/19 12 Unspecified urinary incontinence 02/08/2006 02/09/2006 Pain in joint, pelvic region and thigh 02/08/2006 06/22/2011 Calculus of kidney 02/08/2006 6 Encounters Date Type Department Care Team Description 04/20/2025 Refill [facility] [address] [place] [address] Margarette Oropeza, YUNI Refill Request (Amlodipine, Atorvastatin, Bupropion, Metoprolol Succinate) 04/15/2025 Refill [facility] [address] [place] [address] Margarette Oropeza, YUNI Refill Request (Alendronate) 03/27/2025 Orders Only [facility] Scanner 1 scan: (1-Ord) [facility], CHEMICAL CAUT GRANUL and SP TUBE CHANGE, 03/27/2025 01/26/2025 Refill [facility] [address] [place] [address] Margarette Oropeza, YUNI Refill Request (Bupropion) from Last 3 Months Immunizations Immunization Administration Dates Next Due COVID-19 vaccine (Moderna 100mcg/0.5mL) PF, MDV 08/25/2021,01/19/2021 COVID-19 vaccine (Moderna 50mcg/0.5mL) 12YO+ BIVALENT PF, MDV 10/21/2022 Covid-19 Vaccine (Unspecified) ,09/15/2021,01/04/2021,2020,12/07/2020 Influenza Virus, Unspecified 08/25/2023,07/25/20 20,10/05/2002 Influenza, High-dose Inactivated 018,07/08/2016(Deferred: Patient Refused) Influenza, High-dose Quadriv alent Inactivated 10/01/2022 Influenza, IIV4 10/08/2017 Influenza, Inactivated IIV3 (Age 65+ Years) Preserv Free 08/31/2020,10/09/2019 Pneumococcal Poly,23-Valent (Pneumovax) 10/25/2017,07/08/2016,10/25/2015,2013 Pneumococcal conj 13-Valent (Prevnar 13) 10/25/2020,10/25/2017,10/25/2015,2014,10/25/2014,10/25/2013 Pneumococcal, Unspecified 09/24/2018 Td (Age >=7 Years) 01/03/2009,12/23/2008, 999 Tdap 06/10/2022 Tuberculin Skin Test, Unspecified 04/23/2021, Zoster (Zostavax-ZVL, live) 07/07/2012 Family History Medical History Relation Name Comments Good Health Brother Raymundo Heart Disease Father copd Other Maternal Aunt ms Other Mother macular degener ation, non-Hodgkin's lymphoma/RA Good Health Sister Nisa Cancer No Family History Cancer-breast No Family History Cancer-colon No Family History Cancer-ovarian No Family History Cancer-prostate No Family History Relation Name Status Comments Brother Raymundo Father (Age 72) copd Maternal Aunt Mother Alive Sister Nisa Social History Tobacco Use Types Packs/Day Years Used Date Smoking Tobacco: Never Smokeless Tobacco: Never Tobacco Cessation:Counseling Given: Yes Alcohol Use Standard Drinks/Week Comments No 0 (1 standard drink = 0.6 oz pur e alcohol) PHQ-2 Answer Date Recorded PHQ-2 TOTAL SCORE 0 07/18/2024 Social Connections Answer Date Recorded Do you often feel lonely or isolated from those around you? 0 07/18/2024 Financial Resource Strain Answer Date R ecorded Difficulty of Paying Living Expenses 3 07/18/2024 Difficulty of Paying Living Expenses Not on file 07/18/2024 Food Insecurity Answer Date Recorded Do you worry your food will run out before you are able to buy more? 1 07/18/2024 Transportation Needs Answer Date Record ed Does lack of transportation keep you from medica l appointments? 1 07/18/2024 Does lack of transportation keep you from work, meetings or getting things that you need? 1 07/18/2024 Housing Stability Answer Date Recorded What is your housing situation today? 1 07/18/2024 Utilities Answer Date Recorded Do you have trouble paying f or utilities (for example, heat, electricity, water, phone)? 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 file Not on file Not on file Obstetrics History Last Filed Vital Signs Vital Sign Reading Time Taken Comments Blood Pressure 134/72 07/18/2024 1:09 PM CDT Pulse 87 07/18/2024 1:09 PM CDT Temperature 36.4 C (97.5 F) 06/10/2022 11:25 AM CDT Respiratory Rate 16 07/06/2021 8:00 AM CDT Oxygen Saturation 98% 07/18/2024 1:09 PM CDT Inhaled Oxygen Concentration - - Weight 65.8 kg (145 lb) 07/18/2024 1:09 PM CDT p t reported Height 172.7 cm (5' 8) 05/09/2024 12:49 PM CDT Body Mass Index 22.05 05/09/2024 12:49 PM CDT Plan of Treatment Upcoming Encounters Date Type Department Care Team (Late st Contact Info) Description 06/13/2025 10:30 AM CDT [facility] [address] [place] [address] Priti Padilla PA [address] [place] [address] Health Maintenance Due Date Last Done Comments Zoster (shingles) series for age 50+ (2 of 3) 09/01/2012 07/07/2012 Medicare Wellness for age 65+ 04/03/2018 04/02/2017, 12/04/2013 RSV vaccine for adults or (1 - 1-dose 75+ series) 2023 COVID-19 vaccine series ( season) 2024 10/21/2022, 09/24/2021, 09/15/2021, Additional history exists BMI (ht and wt on same day) for age 18+ 05/09/2025 05/09/2024, 04/29/2023, 07/30/2022, Additional history exists Influenza Vaccine (Season Ended) 2025 08/25/2023, 08/31/2020, 07/25/2020, Additional history exists Depression screening for age 12+ 07/18/2025 07/18/2024, 05/10/2024, 05/09/2024, Additional history exists Tetanus booster 06/10/2032 06/10/2022, 12/23, 12/23/2008, Additional history exists Hepatitis C screening for age 18-79 Completed 12/04/2013 Pneumococcal series for age 50+ Completed 10/25/2020, 09/24/2018, 10/25/2017, Additional history exists (IA) Tdap Completed 06/10/2022 DEXA/DXA scan for age 65+ Completed 2022, 05/16/2019, 04/16/2017 Hepatitis B series for 19+ Aged Out N o longer eligible based on patient's age to complete this topic Medical Devices Implanted Type Area Room Worker Device Identifier Shelf Expiration Date Model / Serial / Lot Screw Asbly 135 Ang 100mm 90026-0 [employer] - [id number] Implanted:Qty: 1 on 02/03/2006 at [facility] Imp[facility]Screw s & Plates Left: Hip [employer] [id number]# / / Screw Bone 4.5x30mm Mickey [id number] [employer] - [id number] Implanted:Qty: 1 on 02/03/2006 at [facility] Imp.,Screw s & Plates Left: Hip [employer] [id number]# / / Screw Bone 4.5x32mm Mickey [id number] [employer] - [id number] Implanted:Qty: 1 on 02/03/2006 at [facility] Imp.,Screw s & Plates Left: Hip [employer] [id number]# / / Screw Bone 4.5x34mm Mickey [id number] [employer] - [id number] Implanted:Qty: 1 on 02/03/2006 at [facility] Imp.,Screw s & Plates Left: Hip [employer] [id number]# / / Screw Bone 4.5x38mm Mickey 35900-50 [employer] - [id number] Implanted:Qty: 1 on 02/03/2006 at [facility] Orth[facility] Imp.,Screw s & Plates Left: Hip [employer] [id number] / / Procedures Procedure Name Priority Date/Time Associated Diagnosis Comments SCAN-OPERATIVE/PROCED URE REPORT 03/27/2025 12:00 AM CDT SCAN-BONE DENSITOMETRY DEXA 02/18/2023 12:00 AM CDT ANTI HCV Routine 12/04/2013 1:24 PM COMPUTER SYSTEMS AUDITOR Need for hepatitis C screening test from Last 3 Months or Most Recently Relevant to Health Maintenance Results * SCAN-OPERATIVE/PROCEDURE REPORT (03/27/2025 12:00 AM CDT) us Scanner OTHER Final Result * SCAN-BONE DENSITOMETRY DEXA (02/18/2023 12:00 AM CDT) Anatomical Region Laterality Modality Other us Scanner OTHER Final Result * ANTI HCV [83547.2] (12/04/2013 1:24 PM COMPUTER SYSTEMS AUDITOR) ANTI HCV Non-reacti ve [facility] Blood specimen (specimen) BLOOD SPECIMEN / Unknown 12/04/2013 1:24 PM COMPUTER SYSTEMS AUDITOR 12/04/2013 1:14 PM COMPUTER SYSTEMS AUDITOR us Ofelia Coy MD SEND OUTS Final Resul t [facility] [place]NAL [place]IP [id number] [address] from Last 3 Months or Most Recently Relevant to Health Maintenance Additional Health Concerns Infection Onset Date Last Indicated ESBL Comment:Order contact precautions. Order consult to Infection Prevention to determine if patient may be removed from precautions. +MDRO 03/30/2021 ESBL E.coli in non overton catheter; 11/20/2020 ESBL from [employer]. 03/30/2021 06/22/2021 Insurance MEDICARE PART A HB ONLY MEDICARE PART B HB ONLY MEDICARE PB ONLY AAR PB ONLY Member Subscriber Plan / Payer ( fective 2019-Present) Name:Antoinette Rosales Relation to Subscriber:Self Name:Antoinette Rosales Payer ID:Not on file Group ID:[id number] Type:Not on file Address: [address] HB ONLY Advance Directives Documents on File Type Date Recorded Patient Grinder Operator Expl anation Healthcare Directive 11/23/2017 018 Power of Junior Account Manager 02/27/2006 Healthcare Directive 02/27/2006 * Full Code (Latest Code Status on File) Date Activated Date Inactivated Comments 06/22/2021 4:46 PM 07/06/2021 11:23 AM Question Answer Comments Code Status Discussion: Per Advance Care Plan * Full Code Date Activated Date Inactivated Comments 03/30/2021 5:37 PM 04/13/2021 3:12 PM Question Answer Comments Code Status Discussion: Discussed * Full Code Date Activated Date Inactivated Comments 07/17/2016 9:10 AM 07/17/2016 3:46 PM * Full Code Date Activated Date Inactivated Comments 06/24/2015 9:48 AM 06/24/2015 3:41 PM * Full Code Date Activated Date Inactivated Comments 10/15/2014 7:00 AM 10/15/2014 3:48 PM Care Teams Straddle Truck Driver Relationship Specialty Start Date End Date Margarette Oropeza NP [address] [place] [address] PCP - General Internal Medicine 12/04/13 Priti Padilla PA [address] [place] [address] Sleep Medicine 12/04/13 Neville Vasquez MD [address] [place] [address] Ophthalmology Surgery 12/04/13 Mary Kate Chaudhary MD [address] [place] [address] Psychiatry 09/05/18 Dali Jaramillo MD [address] [facility] [place] [address] Surgery - Urology 09/26/18
== END 2025-04-24 10:50 | disposition home or self-care (01) ==
LOC: NM 10:52
PROVIDERS: PCP Nurse Practitioner Gerontology; Visit Provider Nurse Practitioner Family
DX: L89.154 Pressure ulcer of sacral region, stage 4 (principal)
CPT/HCPCS: 78315; A9503

== ENCOUNTER 2025-04-26 10:01 | Outpatient (CLI) | payer MEDICARE, SELFPAY | END 2025-04-26 10:02 | disposition home or self-care (01) | LOC: WOUND 10:01 | PROVIDERS: PCP Nurse Practitioner Gerontology; Visit Provider Physician Assistant | DX: L89.154 Pressure ulcer of sacral region, stage 4 (principal); M86.38 Chronic multifocal osteomyelitis, other site; G35 Multiple sclerosis; Z99.3 Dependence on wheelchair | CPT/HCPCS: 97597; 97605 ==

== ENCOUNTER 2025-05-04 15:01 | Outpatient (CLI) | payer MEDICARE, SELFPAY | END 2025-05-04 15:02 | disposition home or self-care (01) | LOC: WOUND 15:01 | PROVIDERS: PCP Nurse Practitioner Gerontology; Visit Provider Nurse Practitioner Family | DX: L89.154 Pressure ulcer of sacral region, stage 4 (principal); M86.38 Chronic multifocal osteomyelitis, other site; G35 Multiple sclerosis; Z99.3 Dependence on wheelchair | CPT/HCPCS: 15271; Q4151 ==

== ENCOUNTER 2025-05-11 15:08 | Outpatient (CLI) | payer MEDICARE, SELFPAY | END 2025-05-11 15:09 | disposition home or self-care (01) | LOC: WOUND 15:08 | PROVIDERS: PCP Nurse Practitioner Gerontology; Visit Provider Nurse Practitioner Family | DX: L89.154 Pressure ulcer of sacral region, stage 4 (principal); G35 Multiple sclerosis; R26.9 Unspecified abnormalities of gait and mobility; Z99.3 Dependence on wheelchair | CPT/HCPCS: 11042; 97605 ==

== ENCOUNTER 2025-05-18 15:02 | Outpatient (CLI) | payer MEDICARE, SELFPAY | END 2025-05-18 15:03 | disposition home or self-care (01) | LOC: WOUND 15:03 | PROVIDERS: PCP Nurse Practitioner Gerontology; Visit Provider Nurse Practitioner Family | DX: L89.154 Pressure ulcer of sacral region, stage 4 (principal); G35 Multiple sclerosis; R26.9 Unspecified abnormalities of gait and mobility; Z99.3 Dependence on wheelchair | CPT/HCPCS: 15271; Q4151 ==

== ENCOUNTER 2025-05-25 14:29 | Outpatient (CLI) | payer MEDICARE, SELFPAY | END 2025-05-25 14:30 | disposition home or self-care (01) | LOC: WOUND 14:29 | PROVIDERS: PCP Nurse Practitioner Gerontology; Visit Provider Nurse Practitioner Family | DX: L89.154 Pressure ulcer of sacral region, stage 4 (principal); G35 Multiple sclerosis; R26.9 Unspecified abnormalities of gait and mobility; Z99.3 Dependence on wheelchair | CPT/HCPCS: 11042; 97605 ==

== ENCOUNTER 2025-06-01 14:47 | Outpatient (CLI) | payer MEDICARE, SELFPAY | END 2025-06-01 14:48 | disposition home or self-care (01) | PROVIDERS: PCP Nurse Practitioner Gerontology; Visit Provider Nurse Practitioner Family | DX: L89.154 Pressure ulcer of sacral region, stage 4 (principal); G35 Multiple sclerosis; R26.9 Unspecified abnormalities of gait and mobility; Z99.3 Dependence on wheelchair | CPT/HCPCS: 15271; Q4151 ==

== ENCOUNTER 2025-06-08 14:48 | Outpatient (CLI) | payer MEDICARE, SELFPAY | END 2025-06-08 14:49 | disposition home or self-care (01) | LOC: WOUND 14:49 | PROVIDERS: PCP Nurse Practitioner Gerontology; Visit Provider Nurse Practitioner Family | DX: L89.154 Pressure ulcer of sacral region, stage 4 (principal); G35 Multiple sclerosis; R26.9 Unspecified abnormalities of gait and mobility; Z99.3 Dependence on wheelchair | CPT/HCPCS: 11042; 97605 ==

== ENCOUNTER 2025-06-15 14:46 | Outpatient (CLI) | payer MEDICARE, SELFPAY | END 2025-06-15 14:47 | disposition home or self-care (01) | LOC: WOUND 14:46 | PROVIDERS: PCP Nurse Practitioner Gerontology; Visit Provider Nurse Practitioner Family | DX: L89.154 Pressure ulcer of sacral region, stage 4 (principal); G35 Multiple sclerosis; R26.9 Unspecified abnormalities of gait and mobility | CPT/HCPCS: 11042; 97605 ==

== ENCOUNTER 2025-06-22 14:46 | Outpatient (CLI) | payer MEDICARE, SELFPAY | END 2025-06-22 14:47 | disposition home or self-care (01) | LOC: WOUND 14:46 | PROVIDERS: PCP Nurse Practitioner Gerontology; Visit Provider Nurse Practitioner Family | DX: L89.154 Pressure ulcer of sacral region, stage 4 (principal); G35 Multiple sclerosis; R26.9 Unspecified abnormalities of gait and mobility; Z99.3 Dependence on wheelchair | CPT/HCPCS: 15271; Q4158 ==

== ENCOUNTER 2025-06-29 14:54 | Outpatient (CLI) | payer MEDICARE, SELFPAY | END 2025-06-29 14:55 | disposition home or self-care (01) | LOC: WOUND 14:55 | PROVIDERS: PCP Nurse Practitioner Gerontology; Visit Provider Nurse Practitioner Family | DX: L89.154 Pressure ulcer of sacral region, stage 4 (principal); G35 Multiple sclerosis; Z99.3 Dependence on wheelchair | CPT/HCPCS: 97605 ==

== ENCOUNTER 2025-07-06 14:49 | Outpatient (CLI) | payer MEDICARE, SELFPAY | END 2025-07-06 14:50 | disposition home or self-care (01) | LOC: WOUND 14:49 | PROVIDERS: PCP Nurse Practitioner Gerontology; Visit Provider Nurse Practitioner Family | DX: L89.154 Pressure ulcer of sacral region, stage 4 (principal); G35 Multiple sclerosis; R26.9 Unspecified abnormalities of gait and mobility; Z99.3 Dependence on wheelchair | CPT/HCPCS: 15271; Q4158 ==

== ENCOUNTER 2025-07-13 14:48 | Outpatient (CLI) | payer MEDICARE, SELFPAY | END 2025-07-13 14:49 | disposition home or self-care (01) | LOC: WOUND 14:50 | PROVIDERS: PCP Nurse Practitioner Gerontology; Visit Provider Nurse Practitioner Family | DX: L89.154 Pressure ulcer of sacral region, stage 4 (principal); G35 Multiple sclerosis; R26.9 Unspecified abnormalities of gait and mobility; Z99.3 Dependence on wheelchair | CPT/HCPCS: G0463 ==

== ENCOUNTER 2025-07-19 13:19 | Outpatient (CLI) | payer MEDICARE, SELFPAY | END 2025-07-19 13:20 | disposition home or self-care (01) | LOC: WOUND 13:20 | PROVIDERS: PCP Nurse Practitioner Gerontology; Visit Provider Nurse Practitioner Family | DX: L89.154 Pressure ulcer of sacral region, stage 4 (principal); G35 Multiple sclerosis; R26.9 Unspecified abnormalities of gait and mobility; Z99.3 Dependence on wheelchair | CPT/HCPCS: 11042; 15271; Q4158 ==

== ENCOUNTER 2025-07-27 14:42 | Outpatient (CLI) | payer MEDICARE, SELFPAY | END 2025-07-27 14:43 | disposition home or self-care (01) | LOC: WOUND 14:43 | PROVIDERS: PCP Nurse Practitioner Gerontology; Visit Provider Family Medicine | DX: L89.154 Pressure ulcer of sacral region, stage 4 (principal); G35.D Multiple sclerosis, unspecified; R26.9 Unspecified abnormalities of gait and mobility; Z99.3 Dependence on wheelchair | CPT/HCPCS: 11042 ==

== ENCOUNTER 2025-08-10 14:45 | Outpatient (CLI) | payer MEDICARE, SELFPAY | END 2025-08-10 14:46 | disposition home or self-care (01) | LOC: WOUND 14:46 | PROVIDERS: PCP Nurse Practitioner Gerontology; Visit Provider Nurse Practitioner Family | DX: L89.154 Pressure ulcer of sacral region, stage 4 (principal); G35.D Multiple sclerosis, unspecified; R26.9 Unspecified abnormalities of gait and mobility; Z99.3 Dependence on wheelchair | CPT/HCPCS: 11042 ==